=== PATIENT | female | born 1945 | race Caucasian/White ===

== ENCOUNTER 2017-12-24 21:33 | Inpatient (IN) | payer MEDICARE, OTHER ==
[2017-12-24 22:25] LABS: #Lymphocytes 0.9 thou/uL (1.20-3.40); #Monocytes 0.2 thou/uL (0.11-0.59); #Neutrophils 6.6 thou/uL (1.40-6.50); %Basophils 0.3 % (0.0-1.0); %Eosinophils 0.1 % (0.0-10.0); %Monocytes 2.1 % (0.0-10.0); %Neutrophils 85.5 % (42.0-75.0); Hemoglobin 10.6 g/dL (12.0-16.0); Mean Corpuscular HGB CONC 31.4 g/dL (32.0-36.0); Mean Corpuscular Hemoglobin 26.9 pg (27.0-31.0); Mean Corpuscular Volume 85.8 fl (81.0-99.0); Mean Platelet Volume 6.6 fL (7.4-10.4); Platelet Count 334 thou/uL (130-400); RBC Distribution Width 14.2 % (11.5-14.5); Red Blood Cell (RBC) Count 3.92 mill/uL (4.20-5.40); White Blood Cell (WBC) Count 7.8 thou/uL (4.8-10.8)
[2017-12-24 22:39] LABS: CK (CPK) 1216 U/L (29-168); Lipase 23 U/L (8-78); PTT 34.1 SEC (22.9-36.1); Prothrombin Time 13.8 SEC (12.0-14.7)
[2017-12-24 22:44] LABS: CKMB 3.6 ng/mL (0-6.6); Troponin I Less than 0.010 ng/mL (< 0.028)
[2017-12-24] MEDS ORDERED: Sodium Chloride For Inhalation 0.9% 3 ML NEB ONE (23:19)
[2017-12-24 23:35] LABS: ALT (SGPT) 27 U/L (8-55); AST (SGOT) 46 U/L (5-34); Alkaline Phosphatase 83 U/L (40-150); Anion Gap 14 mmol/L (10-20); BUN (Urea Nitrogen) 28 mg/dL (9.8-20.1); Bilirubin, Total 0.5 mg/dL (0.2-1.2); Calc. Creatinine Clearance 0 mL/min (70-130); Calcium 8.8 mg/dL (7.8-10.44); Carbon Dioxide 22 mmol/L (23-31); Chloride 102 mmol/L (98-107); Estimated GFR-MDRD 28; Globulin 2.5 g/dL (2.4-3.5); Glucose 180 mg/dL (83-110); Potassium 4.1 mmol/L (3.5-5.1); Protein, Total 6.5 g/dL (6.0-8.3); Sodium 134 mmol/L (136-145)
[2017-12-24 23:39] LABS: Base Excess-Venous -3.9 mmol/L (0 (+/- 2.5)); Bicarbonate (HCO3v) 22.4 mmol/L (1.0-85.0); CO2 Tension (PvCO2) 44.8 mmHg (41.0-51.0); Calcium, Ionized 1.11 mmol/L (1.12-1.32); Hemoglobin - Calc 12.1 g/dL (12.0-18.0); O2 Tension (PvO2) 57.8 mmHg (35.0-45.0); Potassium 3.8 mmol/L (3.4-4.7); T. Carbon Dioxide 23.8 mmol/L (1.0-85.0); pH (Venous) 7.308 (7.35-7.45); vO2 Saturation-calc 86.7 % (94-98)
[2017-12-24] MEDS ORDERED: Dexamethasone 4 mg/ml Vial ONE (23:39)
[2017-12-25] MEDS ORDERED: Dexamethasone 4 mg/ml Vial ONE ×2 (00:18→05:50)
[2017-12-25 00:47] LABS: Base Excess (BEa) -5.7 mEq/L (0 (+/-) 2.5); CO2 Tension 34.1 mmHg (35.0-45.0); Hematocrit-ABG 35.1 % (36.0-47.0); Hemoglobin (Hb) 9.9 g/dL (12.0-16.0); O2 Tension (PaO2) 120.7 mmHg (80.0-100.0); pH, Arterial 7.36 (7.35-7.45)
[2017-12-25 00:48] LABS: ALV-art Gradient 34.915 (0-20); Analyzer IN Cardio ER; Calcium, Ionized 1.2 mmol/L (1.12-1.30); Puncture Site RBA
[2017-12-25] MEDS ORDERED: Benzonatate 100 MG CAP PO PRN (02:19)
[2017-12-25] MEDS ORDERED: Dextrose 50% Abboject 50 ML SYRINGE SLOW IVP PRN (02:21)
[2017-12-25] MEDS ORDERED: Dextrose 5% in Water 1,000 ML IV PRN (02:21)
[2017-12-25 03:35] LABS: #Lymphocytes 0.5 thou/uL (1.20-3.40); #Monocytes 0.1 thou/uL (0.11-0.59); #Neutrophils 7.3 thou/uL (1.40-6.50); %Basophils 0.2 % (0.0-1.0); %Eosinophils 0.1 % (0.0-10.0); %Lymphocytes 6.8 % (21.0-51.0); %Monocytes 0.7 % (0.0-10.0); %Neutrophils 92.2 % (42.0-75.0); Hemoglobin 10.7 g/dL (12.0-16.0); Mean Corpuscular HGB CONC 31.6 g/dL (32.0-36.0); Mean Corpuscular Hemoglobin 27.1 pg (27.0-31.0); Mean Corpuscular Volume 85.8 fl (81.0-99.0); Mean Platelet Volume 6.6 fL (7.4-10.4); Platelet Count 319 thou/uL (130-400); RBC Distribution Width 14.2 % (11.5-14.5); Red Blood Cell (RBC) Count 3.94 mill/uL (4.20-5.40); White Blood Cell (WBC) Count 7.9 thou/uL (4.8-10.8)
[2017-12-25 03:50] LABS: Anion Gap 15 mmol/L (10-20); BUN (Urea Nitrogen) 28 mg/dL (9.8-20.1); Calc. Creatinine Clearance 0 mL/min (70-130); Calcium 9.1 mg/dL (7.8-10.44); Carbon Dioxide 19 mmol/L (23-31); Chloride 104 mmol/L (98-107); Estimated GFR-MDRD 29; Glucose 310 mg/dL (83-110); Potassium 4.3 mmol/L (3.5-5.1); Sodium 134 mmol/L (136-145)
--- NOTE | 2017-12-25 07:23 | RAD ---
RADIOGRAPH NECK SOFT TISSUES 2 VIEWS: Date: 12/24/17 Time: 2347 hours HISTORY: 72-year-old female with dyspnea. FINDINGS: No evidence of prevertebral soft tissue swelling or supraglottitis. There is narrowing of the upper p ortion of the trachea, with steeple sign. There are severe degenerative facet changes in the left upp er cervical spine, and at least moderate degenerative facet changes elsewhere bilaterally. There is m ultilevel degenerative disc disease, including severe, incompletely imaged. IMPRESSION: 1. Subglottic tracheal narrowing, suggestive of edema. 2. No supraglottic airway narrowing. 3. High-grade cervical spondylosis. POS: [facility]
[2017-12-25 07:31] VITALS: BMI 29.8
[2017-12-25] MEDS: Dexamethasone 4 mg/ml Vial SLOW IVP SCH ×3 (07:57→17:23)
[2017-12-25] MEDS: Heparin 5,000 UNITS/ML VIAL SC SCH ×3 (08:50→20:36)
[2017-12-25] MEDS: HYDROcodone/Acetaminophen 10/325 mg Tablet PO PRN ×3 (08:50→20:36)
[2017-12-25] MEDS: Benzonatate 100 MG CAP PO SCH ×3 (08:50→20:36)
[2017-12-25] MEDS ORDERED: Famotidine/PF 20 mg/2ml Vial SLOW IVP SCH (09:00)
[2017-12-25] MEDS: Famotidine 40 MG/4 ML VIAL SLOW IVP SCH (09:48)
[2017-12-25] MEDS ORDERED: Acetaminophen 325 MG TAB PO PRN (16:00)
[2017-12-25] MEDS ORDERED: PROVENTIL INHALER 6.7 G (200 INHALATIONS) INH PRN (16:15)
[2017-12-25] MEDS ORDERED: Dulaglutide [Trulicity] 0.75 MG SC SCH (16:15)
[2017-12-25] MEDS: Sodium Chloride 0.45% 1,000 ML IV SCH (17:16)
[2017-12-25] MEDS: traMADol HCl 50 MG TAB PO PRN (18:44)
[2017-12-25] MEDS: Diabetic Tussin 200 MG/10 ML UDCUP PO PRN (19:45)
[2017-12-25] MEDS: Amitriptyline HCl 25 MG TAB PO SCH (20:36)
[2017-12-25] MEDS: guaiFENesin/Codeine Phosphate 200 mg/20 mg 10 ml UD Cup PO PRN (20:46)
[2017-12-25] MEDS: Lidocaine 5% Patch TD PRN (21:55)
[2017-12-25] MEDS: Lidocaine Patch Removal 1 EACH TOP SCH (21:57)
--- NOTE | 2017-12-25 22:17 | CON ---
DATE OF CONSULTATION: 12/25/2017 SERVICE: Pulmonary Medicine. REASON FOR CONSULTATION: Respiratory failure. HISTORY OF PRESENT ILLNESS: The patient is a 72-year-old female with past medical history significant for essentially nothing. She had a 3-day history of febrile illness, with malaise, and symptoms of upper respiratory tract infection. She had progressive shortness of breath that came on over a short period of time. She presented to her primary care physician. She was diagnosed appropriately with a sinusitis. That being said, chest x-ray was unremarkable as well as other interventions including evaluation for flu, and Streptococcus. She presented to the Emergency Department and had stridorous breath sounds. As such, she was subsequently placed in the ICU for observation. There she ended up getting nebulized medication, and steroids. She feels much improved compared to her presentation, though she is still struggling from time to time, particularly when she develops coughing paroxysms. She looks to be in no distress when she is not having one of those paroxysms. That being said, her respirations are fairly labored. PAST MEDICAL HISTORY: 1. Morbid obesity. 2. Fibromyalgia. 3. Osteoarthritis. 4. Type 2 diabetes mellitus. 5. Dyslipidemia. 6. Hypertension. PAST SURGICAL HISTORY: 1. Appendectomy. 2. Gastric bypass surgery. 3. section. 4. Rotator cuff repair. 5. Left open reduction internal fixation of a tibial plateau fracture. FAMILY HISTORY: non-contributory. SOCIAL HISTORY: negative for alcohol, tobacco, or illicit drug use. REVIEW OF SYSTEMS: General, head, ears, eyes, nose, throat, cardiovascular, respiratory, GI, , musculoskeletal, neurologic, and skin is negative except as mentioned in the HPI. ALLERGIES: IODINE, SHELLFISH. MEDICATIONS: List of her inpatient medications were reviewed. There are no specific updates made at this time. PHYSICAL EXAMINATION: VITAL SIGNS: Afebrile, pulse 90, blood pressure 143/78, respirations 18, and saturation 93% on room air. GENERAL: The patient is awake and alert. She is in no apparent distress. She has accessory muscles during inspiration, but expiration is comfortable and she talks in full sentences. HEENT: Normocephalic, atraumatic. Sclerae are white, conjunctivae pink. Oral and nasal mucosa is moist without lesions. LUNGS: Decent air entry. There is no prolonged expiratory phase, wheezing, rhonchi or crackles. She has a very prolonged inspiratory phase. HEART: Normal rate, regular. ABDOMEN: Soft, nontender, nondistended. Bowel sounds are positive. MUSCULOSKELETAL: No cyanosis or clubbing. No pitting in the bilateral lower extremities. NEUROLOGIC: Grossly nonfocal. LABORATORY DATA: WBC 7.9, hemoglobin 10.7, platelets 319,000. INR 1.0. PH 7.36, pCO2 of 34, pO2 of 120, on 20% FIO2. Creatinine 1.71, which is roughly baseline. Basic metabolic profile is otherwise unremarkable. Blood sugars ranged from 208-256. Calcium 1.11. Liver function studies are unremarkable. BNP is normal. IMAGING: X-ray of the soft tissues in the neck demonstrate subglottic tracheal narrowing suggestive of edema. No supraglottic airway narrowing. High-grade cervical spondylosis. ASSESSMENT: 1. 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 Based on the ENT's direct observation. 2. Fibromyalgia. 3. Recent upper respiratory tract infection. PLAN: We will get respiratory virus panel. If she can lie flat to night while sleeping, we will consider getting an MRI of the head, particularly if she is not improving. If she gets worse, elective intubation, and tracheostomy will be performed. Pulmonary Critical Care will continue to follow while the patient remains in this location. I would like for her to be on room air. If she has any evidence of desaturation that is not episodic, we will need to electively intubate her. 70 minutes have been devoted to this patient in various activities. I personally reviewed all imaging studies and laboratory data noted within this document. For fifty percent of this time, I was interacting with the patient at the bedside or coordinating care with the care team. For the remainder of the time I was immediately available to the patient in the hospital unit. PANCHO
[2017-12-25] MEDS: HumaLOG 300 UNITS/3 ML VIAL SC PRN (22:21)
[2017-12-26] MEDS: Dexamethasone 4 mg/ml Vial SLOW IVP SCH ×2 (00:41→04:45)
[2017-12-26] MEDS: guaiFENesin/Codeine Phosphate 200 mg/20 mg 10 ml UD Cup PO PRN ×6 (00:41→20:23)
[2017-12-26] MEDS: Benzonatate 100 MG CAP PO PRN (00:41)
[2017-12-26] MEDS: traMADol HCl 50 MG TAB PO PRN ×3 (00:42→20:22)
[2017-12-26] MEDS: HYDROcodone/Acetaminophen 10/325 mg Tablet PO PRN ×4 (04:46→21:23)
[2017-12-26] MEDS: Levothyroxine Sodium 125 MCG TAB PO SCH (04:46)
[2017-12-26] MEDS: HumaLOG 300 UNITS/3 ML VIAL SC PRN (04:54)
[2017-12-26 05:32] LABS: #Lymphocytes 1.3 thou/uL (1.20-3.40); #Monocytes 0.5 thou/uL (0.11-0.59); #Neutrophils 6.8 thou/uL (1.40-6.50); %Basophils 0.1 % (0.0-1.0); %Eosinophils 0.2 % (0.0-10.0); %Monocytes 5.3 % (0.0-10.0); %Neutrophils 79.3 % (42.0-75.0); Hemoglobin 10.5 g/dL (12.0-16.0); Mean Corpuscular HGB CONC 32.3 g/dL (32.0-36.0); Mean Corpuscular Hemoglobin 28.3 pg (27.0-31.0); Mean Corpuscular Volume 87.5 fl (81.0-99.0); Mean Platelet Volume 7.4 fL (7.4-10.4); Platelet Count 327 thou/uL (130-400); RBC Distribution Width 14.3 % (11.5-14.5); Red Blood Cell (RBC) Count 3.71 mill/uL (4.20-5.40); White Blood Cell (WBC) Count 8.6 thou/uL (4.8-10.8)
[2017-12-26 05:40] LABS: Anion Gap 13 mmol/L (10-20); BUN (Urea Nitrogen) 33 mg/dL (9.8-20.1); Calc. Creatinine Clearance 36 mL/min (70-130); Carbon Dioxide 21 mmol/L (23-31); Chloride 108 mmol/L (98-107); Estimated GFR-MDRD 32; Glucose 182 mg/dL (83-110); Potassium 4.7 mmol/L (3.5-5.1); Sodium 137 mmol/L (136-145)
[2017-12-26] MEDS ORDERED: predniSONE 20 MG TAB PO SCH (08:00)
--- NOTE | 2017-12-26 08:24 | HP ---
PRIMARY CARE PHYSICIAN: Osiris Watkins MD HISTORY OF PRESENT ILLNESS: This is a 72-year-old female with a history of hypertension, hypothyroidism, chronic pain, restless legs, who presented with sudden onset of shortness of breath yesterday. She went to see her primary care provider, who was found to be negative and was discharged home with albuterol and doxycycline. The patient was able to take the albuterol, but somehow was not able to take the doxycycline because she did not fill it and subsequently presented to the Emergency Department for worsening shortness of breath. In the Emergency Department, she was screened for flu, which was negative. Chest x-ray is unremarkable; however, she was noted to clinically have significant amount of stridor. This was accompanied by hypoxia. The patient was given a dose of racemic EPI and started on IV steroids, which significantly helped with the patient's respiratory status. At the time of my evaluation, the patient states that her breathing is significantly better, states that she has sick contacts in the form of two small children, one 5-year- old and one preschool age toddler at home. REVIEW OF SYSTEMS: As per HPI. CONSTITUTIONAL: No significant weight changes, loss or gain over the last 2 weeks. Denies any overt fevers or chills. HEENT: No new headaches, dizziness, or lightheadedness. Denies any change in vision. CARDIOVASCULAR: Denies any chest pain, chest pressure, left side arm numbness or tingling. Denies any diaphoretic episodes with shortness of breath. RESPIRATORY: Shortness of breath not particularly with exertion, but also occurring at rest. Endorses a cough, denies any production of the cough. Denies any postnasal drip. Positive for cough. Negative for productive cough. GASTROINTESTINAL: Denies any nausea, vomiting, abdominal pain, constipation, or diarrhea. GENITOURINARY: Denies any issues with dysuria, change in urinary frequency, quality or quantity. MUSCULOSKELETAL: Generalized fatigue but otherwise no focal myalgias or arthralgias. Remainder of review of systems otherwise negative. PAST MEDICAL HISTORY: As per above, significant for type 2 diabetes, hyperlipidemia, hypertension, osteoarthritis, obesity, and fibromyalgia. PAST SURGICAL HISTORY: Status post appendectomy, status post right shoulder surgery, status post gastric bypass, status post . HOME MEDICATIONS: Please see the EMR for full details. The patient's regimen appears to include the following: Tramadol 100 mg p.o. daily, repaglinide, pantoprazole, [place]-3 Fatty Acids, multivitamins, montelukast, losartan, lidocaine patch, levothyroxine, [place], glucose, furosemide, zetimibe, colestipol , calcium carbonate, biotin, aspirin, amitriptyline, and acetaminophen. ALLERGIES: Include IODINE, SHELLFISH, and BEE VENOM. FAMILY HISTORY: The patient denies any known family history of pulmonary issues. Denies any family history of asthma. Denies any personal history of asthma as well. SOCIAL HISTORY: The patient is . Her is with her at bedside. She indicates he would be her medical decision maker if she is unable to make her own medical decisions. She endorses being FULL CODE at this point in time. There is small children, who reside with them in the home, who are potential sick contacts as mentioned above. The patient denies any active alcohol, tobacco, or illicit drug use. PHYSICAL EXAMINATION: VITAL SIGNS: Temperature of 98.7, pulse of 101, respirations 18, satting 94% on room air. GENERAL: The patient is awake, alert, seated in the ER stretcher. HEENT: Normocephalic, atraumatic. Slightly dry mucous membranes. Extraocular motions are intact. CARDIOVASCULAR: S1 and S2. No murmurs, rubs or gallops. Pulses 2+ bilateral upper extremities, no pitting pedal edema. RESPIRATORY: No wheezes, rales, or rhonchi. Reasonable air movement with deep breath. The patient starts having coughing paroxysms. ABDOMEN: Positive bowel sounds, soft, nontender to palpation. MUSCULOSKELETAL: Able to move all 4 extremities and self-reposition the stretcher without difficulty or assistance. LABORATORY DATA AND IMAGING: WBC 7.8, hemoglobin 10.6, hematocrit 33.6, platelets 334. PT 13.8, INR 1.0, D-dimer 0.41. ABG significant for pH was 7.36 , pCO2 of 34, pO2 of 120. Sodium 134, potassium 4.1, chloride 102, bicarbonate 22, BUN 28, creatinine 1.76, glucose 180, calcium 8.8, total bilirubin 0.5, AST 46, ALT 27, alkaline phosphatase 83. Creatinine kinase 1216, CK-MB 3.6, troponin less than 0.01. BNP 24.7, total protein 6.5, albumin 4.0, lipase 23. On 12/24/2017, chest x-ray. Impression atherosclerosis. No acute cardiopulmonary process. Soft tissue neck x-ray. Impression subglottic tracheal narrowing suggestive of edema. No supraglottic airway narrowing. Advanced cervical spondylosis. ASSESSMENT AND PLAN: 1. A 72-year-old female presenting with chief complaint of shortness of breath. Shortness of breath with imaging suggestive of subglottic tracheal narrowing. The patient has been given racemic EPI, will continue and closely monitor the patient's respiratory status. I appreciate pulmonary consultation for help in managing the patient's respiratory status and airway. The patient has also been continued on IV steroids as well. The patient currently appears to be satting reasonably well on nasal cannula. The patient does seem to have hypoxic episodes with coughing, likely secondary to tracheal narrowing coughing paroxysms. We will initiate an antitussive regimen including Tessalon Perles and Robitussin. Patient has been influenza negative. 2. Acute kidney injury, closely monitor, patient's urine output; suspect this is likely secondary to her acute illness. 3. Type 2 diabetes. Anticipate a medication induced hyperglycemia with the utilization of IV steroids. The patient's home medication list, exact dosings are being confirmed with her pharmacy. Once these are confirmed she may resume on her home regimen with a superimposed sliding scale insulin if needed. 4. Hypothyroidism, stable. 5. Hypertension, stable 6. Diet: Diabetic. 7. Activity: As tolerated. 8. Deep venous thrombosis prophylaxis with heparin secondary to renal dysfunction. Thank you for asking me care for the patient. Questions or concerns, contact me at [facility]. The patient is to be admitted to the [facility]. [facility]
[2017-12-26] MEDS: Benzonatate 100 MG CAP PO SCH ×3 (08:49→21:22)
[2017-12-26] MEDS: Famotidine 40 MG/4 ML VIAL SLOW IVP SCH (08:53)
[2017-12-26] MEDS ORDERED: Amoxicillin/Potassium Clav 500 MG TAB PO SCH (10:15)
--- NOTE | 2017-12-26 10:32 | PDOC.PN ---
- Subjective Encounter Start Date: 12/26/17 Encounter Start Time: 10:31 cc: dyspnea sub: Pt says she feels better, still c/o some dyspnea - Objective Resuscitation Status: Resuscitation Status FULL:Full Resuscitation Vital Signs & Weight: Vital Signs (12 hours) Temp Pulse Resp Pulse Ox 12/26/17 08:00 97.7 F 77 18 93 L 12/26/17 03:00 98 F 12/25/17 23:00 98.2 F Weight Weight 157 lb 13.616 oz Most Recent Monitor Data Heart Rate from ECG 87 NIBP 112/45 NIBP BP-Mean 65 Respiration from ECG 12 SpO2 95 I&O: 12/25/17 12/26/17 12/27/17 06:59 06:59 06:59 Intake Total 695 Output Total 975 0 Balance -280 0 Result Diagrams: 12/26/17 10:47 12/26/17 10:47 Additional Labs: Accuchecks 12/26/17 12/25/17 12/25/17 04:54 22:17 16:28 POC Glucose 175 H 209 H 208 H Phys Exam - Physical Examination Constitutional: NAD HEENT: moist MMs Neck: no JVD Respiratory: no wheezing, no rales, no rhonchi occasional wheezing Cardiovascular: RRR, no significant murmur, no rub no gallop Gastrointestinal: soft, non-tender no guarding, no rebound tenderness Neurological: non-focal follows commands Psychiatric: normal affect Skin: no rash Dx/Plan - Plan Pt is 72 yrs old female now admitted to hospital with diagnosis of dyspnea 1. Dyspnea + Laryngeal weakness 2. SOLO 3. DM type 2 4. H/O HTN Plan: Pulmonary on board. Monitor respiratory status closely Creatinine worsening. Will dc losartan Continue miv fluids. Check BMP in am Monitor bp closely. will titrate bp meds as tolerated SCD & PPI for prophylaxis Currently on room air. Will transfer pt to tele case d/w pt & RN
[2017-12-26] MEDS: Ezetimibe 10 MG TAB PO SCH (10:33)
[2017-12-26] MEDS: Heparin 5,000 UNITS/ML VIAL SC SCH ×3 (10:33→21:26)
[2017-12-26 10:58] LABS: #Lymphocytes 1.6 thou/uL (1.20-3.40); #Monocytes 0.5 thou/uL (0.11-0.59); #Neutrophils 7.8 thou/uL (1.40-6.50); %Basophils 0.2 % (0.0-1.0); %Lymphocytes 16.1 % (21.0-51.0); %Monocytes 4.7 % (0.0-10.0); %Neutrophils 78.9 % (42.0-75.0); Hemoglobin 11.3 g/dL (12.0-16.0); Mean Corpuscular Hemoglobin 26.8 pg (27.0-31.0); Mean Corpuscular Volume 86.5 fl (81.0-99.0); Mean Platelet Volume 6.8 fL (7.4-10.4); Platelet Count 374 thou/uL (130-400); RBC Distribution Width 14.4 % (11.5-14.5); Red Blood Cell (RBC) Count 4.21 mill/uL (4.20-5.40); White Blood Cell (WBC) Count 9.8 thou/uL (4.8-10.8)
[2017-12-26 11:30] LABS: Anion Gap 18 mmol/L (10-20); BUN (Urea Nitrogen) 36 mg/dL (9.8-20.1); Calc. Creatinine Clearance 33 mL/min (70-130); Calcium 9.1 mg/dL (7.8-10.44); Carbon Dioxide 18 mmol/L (23-31); Chloride 106 mmol/L (98-107); Estimated GFR-MDRD 29; Glucose 171 mg/dL (83-110); Potassium 3.9 mmol/L (3.5-5.1); Sodium 138 mmol/L (136-145)
[2017-12-26] MEDS: Sodium Chloride 0.45% 1,000 ML IV SCH (12:29)
[2017-12-26] MEDS ORDERED: Losartan 25 MG TAB PO SCH (21:00)
--- NOTE | 2017-12-26 21:20 | PRG ---
DATE OF SERVICE: 12/26/2017 SERVICE: Pulmonary Medicine. INTERVAL HISTORY: The patient is doing fine from a respiratory standpoint. She is breathing comfortably today. Her vocal cord issue seems to be improving slightly. She is moving more air. Yesterday, we discovered parainfluenza virus. I am not certain whether or not this can create her vocal cord dysfunction, but I am going to look that up. I am just happy to see that she is feeling much improved today. Her voice seems to be a touch stronger, she is not having those coughing paroxysms as she previously was. PHYSICAL EXAMINATION: VITAL SIGNS: Afebrile, pulse 88, blood pressure 107/51, respirations 16, saturation 98% on room air. GENERAL: The patient is awake and alert, in no apparent distress. LUNGS: Decent air entry. There is much less stridor today. There is less prolonged inspiratory phase, although it is still present. HEART: Normal rate, regular. ABDOMEN: Soft, nontender, nondistended. Bowel sounds are positive. MUSCULOSKELETAL: No cyanosis or clubbing. No pitting in the bilateral lower extremities. NEUROLOGIC: Grossly nonfocal. LABORATORY DATA: WBC 9.8, hemoglobin 11.3, platelets 374,000. Creatinine 1.73 , BUN 36. Basic metabolic profile is otherwise unremarkable. Bicarbonate is slowly dropping to 18 and anion gap is increased slightly to 18. Respiratory virus panel was positive for parainfluenza virus 3. ASSESSMENT: 1. 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 2. Upper respiratory tract infection, secondary to parainfluenza virus. 3. Fibromyalgia. PLAN: The patient is doing fairly well. As such, we will deescalate her to the [facility]. She will be offered clear diet. Pulmonary Critical Care will continue to follow along. If she continues to make good progress, no additional studies will be performed. If she gets worse, elective intubation possible tracheostomy will need to be considered. I will look to whether or not parainfluenza virus 3 could create bilateral vocal cord paralysis and whether or not this is expected to be temporary or permanent. PANCHO
[2017-12-26] MEDS: Amitriptyline HCl 25 MG TAB PO SCH (21:22)
[2017-12-26] MEDS: Amoxicillin/Potassium Clav 500 MG TAB PO SCH (21:22)
[2017-12-26] MEDS: Lidocaine 5% Patch TD PRN (21:27)
[2017-12-26] MEDS: Lidocaine Patch Removal 1 EACH TOP SCH (22:35)
[2017-12-27] MEDS: guaiFENesin/Codeine Phosphate 200 mg/20 mg 10 ml UD Cup PO PRN ×4 (02:56→21:42)
[2017-12-27] MEDS: Benzonatate 100 MG CAP PO PRN (05:21)
[2017-12-27] MEDS: Levothyroxine Sodium 125 MCG TAB PO SCH (05:22)
[2017-12-27 05:24] LABS: #Lymphocytes 2.2 thou/uL (1.20-3.40); #Monocytes 1.1 thou/uL (0.11-0.59); #Neutrophils 5.6 thou/uL (1.40-6.50); %Basophils 0.1 % (0.0-1.0); %Eosinophils 0.3 % (0.0-10.0); %Lymphocytes 24.9 % (21.0-51.0); %Monocytes 12.3 % (0.0-10.0); %Neutrophils 62.4 % (42.0-75.0); Mean Corpuscular Hemoglobin 27.4 pg (27.0-31.0); Mean Corpuscular Volume 85.6 fl (81.0-99.0); Platelet Count 299 thou/uL (130-400); RBC Distribution Width 14.1 % (11.5-14.5); Red Blood Cell (RBC) Count 3.64 mill/uL (4.20-5.40); White Blood Cell (WBC) Count 8.9 thou/uL (4.8-10.8)
[2017-12-27 05:35] LABS: Anion Gap 14 mmol/L (10-20); BUN (Urea Nitrogen) 38 mg/dL (9.8-20.1); Calc. Creatinine Clearance 34 mL/min (70-130); Calcium 8.5 mg/dL (7.8-10.44); Carbon Dioxide 18 mmol/L (23-31); Chloride 109 mmol/L (98-107); Estimated GFR-MDRD 29; Glucose 169 mg/dL (83-110); Sodium 137 mmol/L (136-145)
[2017-12-27] MEDS: Amoxicillin/Potassium Clav 500 MG TAB PO SCH ×2 (07:42→20:18)
[2017-12-27] MEDS: Ezetimibe 10 MG TAB PO SCH (07:42)
[2017-12-27] MEDS: Benzonatate 100 MG CAP PO SCH ×3 (07:42→20:17)
[2017-12-27] MEDS: HYDROcodone/Acetaminophen 10/325 mg Tablet PO PRN ×3 (07:42→20:14)
[2017-12-27] MEDS: Famotidine 20 MG TAB PO SCH (07:43)
[2017-12-27] MEDS: Heparin 5,000 UNITS/ML VIAL SC SCH ×3 (07:43→20:18)
[2017-12-27] MEDS: Loperamide HCl 2 MG CAP PO PRN ×2 (11:15→15:50)
[2017-12-27] MEDS: Sodium Chloride 0.45% 1,000 ML IV SCH (11:15)
--- NOTE | 2017-12-27 13:03 | PRG ---
DATE OF SERVICE: 12/27/2017 SERVICE: Pulmonary Medicine. INTERVAL HISTORY: The patient is doing fine. Her breathing is much more comfortable today. She did not even have a prolonged inspiratory phase any longer. She still has a hoarse voice and she has so me vocal cord weakness. That being said, she is clearly moving in the right direction and has absolu tely no hint of respiratory issues at this point. She is having a hard time coughing fully, but outs trixie of this, she is doing very well. PHYSICAL EXAMINATION: VITAL SIGNS: Afebrile, pulse 80, blood pressure 192/48, respirations 22 and saturation 97% on room a ir. GENERAL: The patient is awake and alert. She is in no apparent distress. LUNGS: Excellent air entry today. There is no prolonged inspiratory or expiratory phase. Minimal r honchi are present. She has a hard time clearing with cough. HEART: Normal rate and regular. ABDOMEN: Soft, nontender and nondistended. Bowel sounds are positive. MUSCULOSKELETAL: No cyanosis or clubbing. There is trace pitting in the bilateral lower extremities . NEUROLOGIC: Grossly nonfocal. LABORATORY DATA: WBC 8.9, hemoglobin 10.0 and platelets 299,000. Creatinine 1.71 and roughly stable , BUN 36. Bicarbonate 18. Basic metabolic profile is otherwise unremarkable. Respiratory virus saldana el is growing parainfluenza virus 3. ASSESSMENT: 1. 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 2. Upper respiratory tract infection, secondary to parainfluenza virus. 3. Fibromyalgia. 4. Chronic kidney disease, stage 3. DISCUSSION AND PLAN: The patient is really recovering beautifully. I would like for her to be obser mckenna in the hospital for 1 additional day to make certain that her voice strengthens up a touch. Elier rowland will continue to follow while the patient remains in this location. My suspicion is that she h ad an acute inflammatory process associated with a virus. The involvement of the vocal cords has imp roved dramatically over the past 3 days. As such, no additional interventions or diagnostic studies will be entertained presently. I will continue to follow while she remains in house. I did not spec ifically find any evidence to suggest that parainfluenza virus can cause vocal cord issues. We do no t see any bulbar features consistent with neuromuscular disease presently. We will continue to watch for that as time goes on.
--- NOTE | 2017-12-27 17:45 | PDOC.PN ---
- Subjective Encounter Start Date: 12/27/17 Encounter Start Time: 17:44 - Objective Resuscitation Status: Resuscitation Status FULL:Full Resuscitation Vital Signs & Weight: Vital Signs (12 hours) Temp Pulse Pulse Resp BP BP Pulse Ox 12/27/17 15:41 97.2 F L 104 H 24 H 113/52 L 99 12/27/17 14:59 86 123/53 L 12/27/17 11:00 96.8 F L 80 22 H 92/48 L 97 12/27/17 08:00 96.8 F L 81 22 H 98 12/27/17 07:00 96.8 F L 81 22 H 105/49 L 96 Pulse Ox 12/27/17 15:41 12/27/17 14:59 92 L 12/27/17 11:00 12/27/17 08:00 12/27/17 07:00 Weight Weight 157 lb 13.616 oz Most Recent Monitor Data Heart Rate from ECG 76 NIBP 99/54 NIBP BP-Mean 74 Respiration from ECG 16 SpO2 91 I&O: 12/26/17 12/27/17 12/28/17 06:59 06:59 06:59 Intake Total 695 1451 Output Total 975 450 Balance -280 1001 Result Diagrams: 12/27/17 04:54 12/27/17 04:54 Additional Labs: Accuchecks 12/27/17 12/27/17 12/27/17 16:33 10:26 05:30 POC Glucose 155 H 111 H 155 H 12/26/17 22:26 POC Glucose 146 H Dx/Plan - Plan Phys Exam - Physical Examination Constitutional: NAD HEENT: moist MMs Neck: no JVD Respiratory: no wheezing, no rales, no rhonchi occasional wheezing Cardiovascular: RRR, no significant murmur, no rub no gallop Gastrointestinal: soft, non-tender no guarding, no rebound tenderness Neurological: non-focal follows commands Psychiatric: normal affect Skin: no rash Dx/Plan - Plan Pt is 72 yrs old female now admitted to hospital with diagnosis of dyspnea 1. Dyspnea + Laryngeal weakness + Acute on chronic hypoxic hypercapneic respiratory failure 2. SOLO 3. DM type 2 4. H/O HTN 5. Chronic diatsolic CHF Plan: Pulmonary on board. Monitor respiratory status closely Creatinine appears plateaued. monitor for now repeat bmp in am Monitor bp closely. will titrate bp meds as tolerated SCD & PPI for prophylaxis Currently on room air. case d/w pt & RN
[2017-12-27] MEDS: Amitriptyline HCl 25 MG TAB PO SCH (20:18)
[2017-12-27] MEDS: Lidocaine Patch Removal 1 EACH TOP SCH (22:25)
[2017-12-28] MEDS: HYDROcodone/Acetaminophen 10/325 mg Tablet PO PRN ×4 (01:56→20:40)
[2017-12-28] MEDS: guaiFENesin/Codeine Phosphate 200 mg/20 mg 10 ml UD Cup PO PRN ×4 (01:56→17:55)
[2017-12-28] MEDS: Sodium Chloride 0.45% 1,000 ML IV SCH (06:29)
[2017-12-28] MEDS: Levothyroxine Sodium 125 MCG TAB PO SCH (06:29)
[2017-12-28] MEDS: Ezetimibe 10 MG TAB PO SCH (07:56)
[2017-12-28] MEDS: Benzonatate 100 MG CAP PO SCH ×3 (07:56→20:41)
[2017-12-28] MEDS: Amoxicillin/Potassium Clav 500 MG TAB PO SCH ×2 (07:56→20:53)
[2017-12-28] MEDS: Famotidine 20 MG TAB PO SCH (07:57)
[2017-12-28] MEDS: Heparin 5,000 UNITS/ML VIAL SC SCH ×3 (07:58→20:41)
--- NOTE | 2017-12-28 13:49 | PDOC.PN ---
- Subjective Encounter Start Date: 12/28/17 Encounter Start Time: 12:00 Subjective: talks in husky voice, says its gotten worse from sunday -: no sob or trouble eating - Objective Resuscitation Status: Resuscitation Status FULL:Full Resuscitation MAR Reviewed: Yes Vital Signs & Weight: Vital Signs (12 hours) Temp Pulse Resp BP Pulse Ox 12/28/17 12:00 98.3 F 101 H 24 H 137/62 96 12/28/17 08:00 98.2 F 98 26 H 100 12/28/17 07:00 98.2 F 98 26 H 106/65 100 Weight Weight 157 lb 13.616 oz Most Recent Monitor Data Heart Rate from ECG 76 NIBP 99/54 NIBP BP-Mean 74 Respiration from ECG 16 SpO2 91 I&O: 12/27/17 12/28/17 12/29/17 06:59 06:59 06:59 Intake Total 1451 1930 Output Total 450 Balance 1001 1930 Result Diagrams: 12/27/17 04:54 12/27/17 04:54 Additional Labs: Accuchecks 12/28/17 12/28/17 12/27/17 11:00 06:03 20:59 POC Glucose 147 H 144 H 191 H 12/27/17 16:33 POC Glucose 155 H Phys Exam - Physical Examination HEENT: PERRLA, moist MMs Neck: no JVD, supple Respiratory: no wheezing, no rales Cardiovascular: RRR, no significant murmur Gastrointestinal: soft, non-tender, positive bowel sounds Musculoskeletal: pulses present, edema present Neurological: non-focal, moves all 4 limbs Psychiatric: normal affect, A&O x 3 Dx/Plan (1) Acute laryngitis Code(s): J04.0 - ACUTE LARYNGITIS Status: Acute (2) Acute exacerbation of CHF (congestive heart failure) Code(s): I50.9 - HEART FAILURE, UNSPECIFIED Status: Acute Qualifiers: Heart failure type: diastolic Qualified Code(s): I50.33 - Acute on chronic diastolic (congestive) heart failure (3) Chronic anemia Code(s): D64.9 - ANEMIA, UNSPECIFIED Status: Chronic (4) SOLO (acute kidney injury) Code(s): N17.9 - ACUTE KIDNEY FAILURE, UNSPECIFIED Status: Acute (5) CKD (chronic kidney disease) stage 3, GFR 30-59 ml/min Code(s): N18.3 - CHRONIC KIDNEY DISEASE, STAGE 3 (MODERATE) Status: Chronic (6) Physical deconditioning Code(s): R53.81 - OTHER MALAISE Status: Chronic (7) Osteoarthritis Code(s): M19.90 - UNSPECIFIED OSTEOARTHRITIS, UNSPECIFIED SITE Status: Chronic Qualifiers: Osteoarthritis location: multiple joints Osteoarthritis type: primary Qualified Code(s): M15.0 - Primary generalized (osteo)arthritis - Plan is on augmentin, nebs prn -: iv fluids for solo -: has chronic deconditioning and amb with cane minimally in house -: suggest oral steroids for severe laryngitis, she is awaiting ent opinion? -: dc plan per specialist advice * . Review of Systems - Medications/Allergies Allergies/Adverse Reactions: Allergies Allergy/AdvReac Type Severity Reaction Status Date / Time iodine Allergy Verified 04/03/15 00:03 shellfish derived Allergy Verified 04/03/15 00:03 venom-honey bee Allergy Verified 04/03/15 05:05 [bee venom (honey bee)] Medications: Current Medications Acetaminophen (Tylenol) 650 mg PO BID PRN PRN Reason: Mild Pain (1-3) Hydrocodone Bitart/Acetaminophen ([place] 10/325) 1 tab PO Q6H PRN PRN Reason: Severe Pain (7-10) Last Admin: 12/28/17 13:41 Dose: 1 tab Albuterol Sulfate (Proventil Hfa) 1 puff INH Q4H PRN PRN Reason: Cough Amitriptyline HCl (Elavil) 50 mg PO [facility] Last Admin: 12/27/17 20:18 Dose: 50 mg Amoxicillin/Clavulanate Potassium (Augmentin) 500 mg PO BID [facility] Stop: 01/04/18 21:01 Last Admin: 12/28/17 07:56 Dose: 500 mg Benzonatate (Tessalon) 100 mg PO Q4H PRN PRN Reason: Cough Benzonatate (Tessalon) 100 mg PO TID [facility] Last Admin: 12/28/17 07:56 Dose: 100 mg Benzonatate (Tessalon) 200 mg PO TID PRN PRN Reason: Cough Last Admin: 12/27/17 05:21 Dose: 200 mg Cholecalciferol (Vitamin D3) 5,000 units PO DAILY [facility] Last Admin: 12/28/17 07:56 Dose: 5,000 units Dextrose/Water (Dextrose 50%) 25 gm SLOW IVP PRN PRN PRN Reason: Hypoglycemia Ezetimibe (Zetia) 10 mg PO DAILY [facility] Last Admin: 12/28/17 07:56 Dose: 10 mg Famotidine (Pepcid) 20 mg PO 0900 [facility] Last Admin: 12/28/17 07:57 Dose: 20 mg Glucagon (Glucagon) 1 mg IM PRN PRN PRN Reason: Hypoglycemia Guaifenesin (Robitussin Sf) 100 mg PO Q4H PRN PRN Reason: Cough Last Admin: 12/25/17 19:45 Dose: 100 mg Guaifenesin/Codeine Phosphate (Robitussin Ac) 10 ml PO Q4H PRN PRN Reason: Cough Last Admin: 12/28/17 13:41 Dose: 10 ml Heparin Sodium (Porcine) (Heparin) 5,000 units SC TID [facility] Last Admin: 12/28/17 13:42 Dose: 5,000 units Dextrose/Water (D5w) 1,000 mls @ 0 mls/hr IV .Q0M PRN; As Directed PRN Reason: Hypoglycemia Sodium Chloride (1/2 Normal Saline) 1,000 mls @ 50 mls/hr IV .Q20H [facility] Last Admin: 12/28/17 06:29 Dose: 1,000 mls Insulin Human Lispro (Humalog) 0 units SC .MODERATE SLIDING SC PRN PRN Reason: Moderate Correctional Scale Last Admin: 12/26/17 04:54 Dose: 2 unit Levothyroxine Sodium (Synthroid) 125 mcg PO 0600 [facility] Last Admin: 12/28/17 06:29 Dose: 125 mcg Lidocaine (Lidoderm 5% Patch) 1 patch TD DAILY PRN PRN Reason: Pain Last Admin: 12/26/17 21:27 Dose: 1 patch Loperamide HCl (Imodium) 2 mg PO PRN PRN PRN Reason: Diarrhea/Loose Stools Last Admin: 12/27/17 15:50 Dose: 2 mg Miscellaneous Medication (Lidocaine Patch Removal) 1 each TOP 2100 [facility] Last Admin: 12/27/17 22:25 Dose: Not Given Repaglinide (Prandin) 0.5 mg PO AC [facility] Last Admin: 12/28/17 12:17 Dose: Not Given Tramadol HCl (Ultram) 50 mg PO Q6H PRN PRN Reason: Moderate Pain (4-6) Last Admin: 12/26/17 20:22 Dose: 50 mg
--- NOTE | 2017-12-28 15:33 | PRG ---
DATE OF SERVICE: 12/28/2017 SERVICE: Pulmonary Medicine. INTERVAL HISTORY: The patient is doing great from a cardiovascular and respiratory standpoint. She is moving much better air in. She still gets into coughing fits, which make her struggle for a brief period of time. That being said, there are few and far between, and also much more short lived. Jayy hannah is asking to go home today. That being said, I am really not quite comfortable with that until she has more clearly improved inspiratory effort and is more capable with phonation. PHYSICAL EXAMINATION: HEENT: Normocephalic, atraumatic. Sclerae are white, conjunctivae pink. Oral and nasal mucosa is m oist without lesions. LUNGS: Decent air entry. There are some rhonchi present which now cleared with cough. HEART: Normal rate, regular. ABDOMEN: Soft, nontender, and nondistended. Bowel sounds are positive. MUSCULOSKELETAL: No cyanosis or clubbing. There is 1+ pitting in the bilateral lower extremities. NEUROLOGIC: Grossly nonfocal. LABORATORY DATA: WBC 8.9, hemoglobin 10.0, platelets 299,000. Blood sugar ranges from 144-191. ASSESSMENT: 1. Bilateral vocal cord paralysis, possibly secondary to parainfluenza virus. 2. Upper respiratory tract infection, resolving. 3. Chronic kidney disease, stage 3. 4. Fibromyalgia. DISCUSSION AND PLAN: I am really not comfortable with the patient leaving the hospital until she anyi hannah comfortably can inspire and also she has stronger phonation. Once this occurs, she will be prepare d for transition home. If she does not or develops any bulbar type features, should prompt an MRI of the head and Neurology consultation. Pulmonary will continue to follow along for the time being, bu t from my perspective, she is stable for transition to the medical unit.
--- NOTE | 2017-12-28 16:51 | MRI ---
EXAM: BRAIN MRI WITHOUT CONTRAST 12/28/17 HISTORY: Bilateral focal cord paralysis. Evaluate for CVA. Difficult swallowing. COMPARISON: None. TECHNIQUE: Brain MRI is performed without intravenous gadolinium administration. Multisequential, multiplanar im aging is performed. FINDINGS: No hemorrhage on the axial gradient echo sequence. The calvarium has a normal marrow signal intensity. Midline brain parenchymal structures are unremark able. Central arterial flow voids are maintained. Absent restricted diffusion. Minimal T2 and FLAIR w carol matter hyperintensities. Adequate aeration of the mastoid air cells. There is bilateral paranasal sinus mucosal disease. IMPRESSION: Absent restricted diffusion. No acute infarct. POS: [facility]
--- NOTE | 2017-12-28 17:07 | MRI ---
MR OF THE CERVICAL SPINE WITHOUT CONTRAST: 12/28/17 INDICATION: Sore throat, difficulty swallowing and coughing and raspy voice for one week. COMPARISON: MR cervical spine dated 06/17/14. FINDINGS: The visualized aspects of the posterior fossa appear within normal limits. There is mild mucosal thic kening within the sphenoid sinus. At C2-C3, there is mild left neural foraminal narrowing due to uncovertebral hypertrophy and facet anil int degenerative change. At C3-C4, there is severe facet joint degenerative change and mild anterior translation of C3 and C4 which is new from 2014. There is moderate bilateral neural foraminal narrowing and moderate central c anal narrowing. At C4-C5, there is uncovertebral hypertrophy and facet joint degenerative change inducing mild bilate ral neural foraminal narrowing. At C5-C6, there is a disc osteophyte complex inducing moderate central canal narrowing. There is unco vertebral hypertrophy and facet joint degenerative change greater on the left inducing moderate left neural foraminal narrowing. At C6-C7, there is a disc osteophyte complex with facet joint degenerative change inducing mild centr al canal narrowing without appreciable neural foraminal narrowing. At C7-T1, there is no appreciable central canal or neural foraminal narrowing. IMPRESSION: 1. Multilevel spondylosis of the cervical spine with central canal and neural foraminal narrowin g as detailed above. 2. Mild paranasal sinus disease. POS: [facility]
[2017-12-28] MEDS: Amitriptyline HCl 25 MG TAB PO SCH (20:41)
[2017-12-28] MEDS: Lidocaine Patch Removal 1 EACH TOP SCH (20:45)
[2017-12-29] MEDS: Levothyroxine Sodium 125 MCG TAB PO SCH (05:33)
[2017-12-29] MEDS: Famotidine 20 MG TAB PO SCH (09:01)
[2017-12-29] MEDS: Heparin 5,000 UNITS/ML VIAL SC SCH ×3 (09:02→20:48)
[2017-12-29] MEDS: Benzonatate 100 MG CAP PO SCH ×3 (09:02→20:50)
[2017-12-29] MEDS: Ezetimibe 10 MG TAB PO SCH (09:02)
[2017-12-29] MEDS: Amoxicillin/Potassium Clav 500 MG TAB PO SCH ×2 (09:02→20:51)
[2017-12-29] MEDS: traMADol HCl 50 MG TAB PO PRN (09:03)
--- NOTE | 2017-12-29 10:12 | CON ---
DATE OF CONSULTATION: 12/29/2017 CONSULTING PHYSICIAN: Hospitalist Service. IMPRESSION: Vocal cord paralysis and shortness of breath suggesting the possibility of myasthenia gr isaac. PLAN: 1. Mestinon 60 mg q.6 hours. 2. Acetylcholine receptor antibody. HISTORY OF PRESENT ILLNESS: Ms. Kim is a 72-year-old female who reports developing acute voic e changes and some shortness of breath with coughing over the last few days. She was initially treat ed with antibiotics and breathing treatments. She is not significantly improved. She was given some IV steroids, which seemed to improve her situation. She has not noticed any double vision, trouble chewing, lateralized weakness or numbness. She does report some weakness in her legs over the recent past where her legs and knees want to give way on her. She had a chest x-ray which was unremarkable . She was admitted for further evaluation. She was seen by ENT and noted to have bilateral vocal co rd paralysis. She had an MRI of the brain and cervical spine, which only showed some degenerative di sk changes and nothing else of significance. PAST MEDICAL HISTORY: Diabetes, hyperlipidemia, hypertension, osteoarthritis, obesity, fibromyalgia. SOCIAL HISTORY: No tobacco or alcohol use. FAMILY HISTORY: Noncontributory. ALLERGIES: IODINE. REVIEW OF SYSTEMS: Otherwise negative. PHYSICAL EXAMINATION: GENERAL: She is a well-nourished elderly lady, lying in bed, in no distress. VITAL SIGNS: Blood pressure 120/72, pulse 95, respirations 24, temperature 99.2. HEENT: Pupils equal and reactive. Conjunctivae clear. Oropharynx clear. Cranium normocephalic and atraumatic. NECK: Supple. EXTREMITIES: No cyanosis, clubbing or edema. NEUROLOGIC: She was alert and cooperative. Her speech is fluent but very breathy. Cranial nerve ex am did not show any lateralized weakness, but her palate seen to not elevate appropriately. Motor ex am showed 4/5 strength in both upper and lower extremities, both proximally and distally. Sensation was intact to light touch. No tremor or dysmetrias present. Gait was not tested. Sensation was int act. LABORATORY STUDIES: White blood cell count 8.9, hemoglobin 20. Coags were normal. Chemistry panel showed mildly elevated glucoses in the high 100s. SUMMARY: A 72-year-old woman with vocal cord paralysis, some shortness of breath and what appears to be some generalized weakness, possible this could be neuromuscular in etiology and see if she respon ds to Mestinon and given antibody level.
[2017-12-29] MEDS: HYDROcodone/Acetaminophen 10/325 mg Tablet PO PRN (12:28)
[2017-12-29] MEDS: Pyridostigmine Bromide IR 60 MG TAB PO SCH ×3 (12:33→21:47)
--- NOTE | 2017-12-29 13:11 | PRG ---
DATE OF SERVICE: 12/29/2017 SUBJECTIVE: The patient appears to be doing reasonably well. OBJECTIVE: VITAL SIGNS: Temperature 99.2, pulse 79, respirations 24, O2 sat 95%, blood pressure 120/72. HEENT: Unremarkable. She does have a raspy voice. NECK: No JVD. LUNGS: Clear. CARDIAC: S1 and S2 regular. ABDOMEN: Soft. EXTREMITIES: No edema. ASSESSMENT: Bilateral vocal cord paralysis. PLAN: She is being seen and evaluated by Neurology, specifically to rule out the possibility of myas thenia gravis. Her pulmonary situation is stable and she does not appear to be in any impending fraga er respiratory compromise. It does appear that she is slowly improving.
--- NOTE | 2017-12-29 14:53 | PDOC.PN ---
- Subjective Encounter Start Date: 12/29/17 Encounter Start Time: 13:00 Subjective: speech is better this morning -: no trouble breathing - Objective Resuscitation Status: Resuscitation Status FULL:Full Resuscitation MAR Reviewed: Yes Vital Signs & Weight: Vital Signs (12 hours) Temp Pulse Resp BP BP Pulse Ox 12/29/17 11:37 98.8 F 76 16 107/58 L 95 12/29/17 08:00 99.2 F 99 24 H 12/29/17 07:45 99.2 F 99 24 H 120/72 95 12/29/17 04:00 98.4 F 77 16 120/77 95 Weight Weight 157 lb 13.616 oz Most Recent Monitor Data Heart Rate from ECG 76 NIBP 99/54 NIBP BP-Mean 74 Respiration from ECG 16 SpO2 91 I&O: 12/28/17 12/29/17 12/30/17 06:59 06:59 06:59 Intake Total 1929 1650 Balance 1929 1650 Result Diagrams: 12/27/17 04:54 12/27/17 04:54 Additional Labs: Accuchecks 12/29/17 12/29/17 12/28/17 11:50 05:20 20:19 POC Glucose 118 H 127 H 192 H 12/28/17 17:00 POC Glucose 126 H Phys Exam - Physical Examination HEENT: PERRLA, moist MMs Neck: no JVD, supple Respiratory: no wheezing, no rales Cardiovascular: RRR, no significant murmur Gastrointestinal: soft, non-tender, positive bowel sounds Musculoskeletal: no edema, pulses present Neurological: non-focal, moves all 4 limbs Psychiatric: normal affect, A&O x 3 Dx/Plan (1) Bilateral vocal cord paralysis Code(s): J38.02 - PARALYSIS OF VOCAL CORDS AND LARYNX, BILATERAL Status: Acute (2) Acute exacerbation of CHF (congestive heart failure) Code(s): I50.9 - HEART FAILURE, UNSPECIFIED Status: Acute Qualifiers: Heart failure type: diastolic Qualified Code(s): I50.33 - Acute on chronic diastolic (congestive) heart failure (3) Chronic anemia Code(s): D64.9 - ANEMIA, UNSPECIFIED Status: Chronic (4) SOLO (acute kidney injury) Code(s): N17.9 - ACUTE KIDNEY FAILURE, UNSPECIFIED Status: Resolved (5) CKD (chronic kidney disease) stage 3, GFR 30-59 ml/min Code(s): N18.3 - CHRONIC KIDNEY DISEASE, STAGE 3 (MODERATE) Status: Chronic (6) Physical deconditioning Code(s): R53.81 - OTHER MALAISE Status: Chronic (7) Osteoarthritis Code(s): M19.90 - UNSPECIFIED OSTEOARTHRITIS, UNSPECIFIED SITE Status: Chronic Qualifiers: Osteoarthritis location: multiple joints Osteoarthritis type: primary Qualified Code(s): M15.0 - Primary generalized (osteo)arthritis - Plan trial of mestinon to r/o myasthenia per neurology advice -: is on augmenitn, alb inhaler, synthroid, elavil and prandin -: MRI brain and c.spine were -ve -: to amb as tolerated -: has severe osteoarthritis of hips per patient * . Review of Systems - Medications/Allergies Allergies/Adverse Reactions: Allergies Allergy/AdvReac Type Severity Reaction Status Date / Time iodine Allergy Verified 04/03/15 00:03 shellfish derived Allergy Verified 04/03/15 00:03 venom-honey bee Allergy Verified 04/03/15 05:05 [bee venom (honey bee)] Medications: Current Medications Acetaminophen (Tylenol) 650 mg PO BID PRN PRN Reason: Mild Pain (1-3) Hydrocodone Bitart/Acetaminophen ([place] 10/325) 1 tab PO Q6H PRN PRN Reason: Severe Pain (7-10) Last Admin: 12/29/17 12:28 Dose: 1 tab Albuterol Sulfate (Proventil Hfa) 1 puff INH Q4H PRN PRN Reason: Cough Amitriptyline HCl (Elavil) 50 mg PO HS [facility] Last Admin: 12/28/17 20:41 Dose: 50 mg Amoxicillin/Clavulanate Potassium (Augmentin) 500 mg PO BID [facility] Stop: 01/04/18 21:01 Last Admin: 12/29/17 09:02 Dose: 500 mg Benzonatate (Tessalon) 100 mg PO Q4H PRN PRN Reason: Cough Benzonatate (Tessalon) 100 mg PO TID [facility] Last Admin: 12/29/17 09:02 Dose: 100 mg Benzonatate (Tessalon) 200 mg PO TID PRN PRN Reason: Cough Last Admin: 12/27/17 05:21 Dose: 200 mg Cholecalciferol (Vitamin D3) 5,000 units PO DAILY [facility] Last Admin: 12/29/17 09:02 Dose: 5,000 units Dextrose/Water (Dextrose 50%) 25 gm SLOW IVP PRN PRN PRN Reason: Hypoglycemia Ezetimibe (Zetia) 10 mg PO DAILY [facility] Last Admin: 12/29/17 09:02 Dose: 10 mg Famotidine (Pepcid) 20 mg PO 0900 [facility] Last Admin: 12/29/17 09:01 Dose: 20 mg Glucagon (Glucagon) 1 mg IM PRN PRN PRN Reason: Hypoglycemia Guaifenesin (Robitussin Sf) 100 mg PO Q4H PRN PRN Reason: Cough Last Admin: 12/25/17 19:45 Dose: 100 mg Guaifenesin/Codeine Phosphate (Robitussin Ac) 10 ml PO Q4H PRN PRN Reason: Cough Last Admin: 12/28/17 17:55 Dose: 10 ml Heparin Sodium (Porcine) (Heparin) 5,000 units SC TID [facility] Last Admin: 12/29/17 09:02 Dose: 5,000 units Dextrose/Water (D5w) 1,000 mls @ 0 mls/hr IV .Q0M PRN; As Directed PRN Reason: Hypoglycemia Insulin Human Lispro (Humalog) 0 units SC .MODERATE SLIDING SC PRN PRN Reason: Moderate Correctional Scale Last Admin: 12/26/17 04:54 Dose: 2 unit Levothyroxine Sodium (Synthroid) 125 mcg PO 0600 [facility] Last Admin: 12/29/17 05:33 Dose: 125 mcg Lidocaine (Lidoderm 5% Patch) 1 patch TD DAILY PRN PRN Reason: Pain Last Admin: 12/26/17 21:27 Dose: 1 patch Loperamide HCl (Imodium) 2 mg PO PRN PRN PRN Reason: Diarrhea/Loose Stools Last Admin: 12/27/17 15:50 Dose: 2 mg Miscellaneous Medication (Lidocaine Patch Removal) 1 each TOP 2100 [facility] Last Admin: 12/28/17 20:45 Dose: Not Given Pyridostigmine [place] (Mestinon) 60 mg PO Q6H [facility] Last Admin: 12/29/17 12:33 Dose: 60 mg Repaglinide (Prandin) 0.5 mg PO AC [facility] Last Admin: 12/29/17 12:34 Dose: 0.5 mg Tramadol HCl (Ultram) 50 mg PO Q6H PRN PRN Reason: Moderate Pain (4-6) Last Admin: 12/29/17 09:03 Dose: 50 mg
[2017-12-29] MEDS: Diabetic Tussin 200 MG/10 ML UDCUP PO PRN (15:04)
[2017-12-29] MEDS: Amitriptyline HCl 25 MG TAB PO SCH (20:50)
[2017-12-29] MEDS: Lidocaine Patch Removal 1 EACH TOP SCH (20:51)
[2017-12-30] MEDS: Diabetic Tussin 200 MG/10 ML UDCUP PO PRN (00:01)
[2017-12-30] MEDS: HYDROcodone/Acetaminophen 10/325 mg Tablet PO PRN ×2 (05:00→11:41)
[2017-12-30] MEDS: Loperamide HCl 2 MG CAP PO PRN ×2 (05:00→10:58)
[2017-12-30] MEDS: Pyridostigmine Bromide IR 60 MG TAB PO SCH ×2 (05:01→10:20)
[2017-12-30] MEDS: Levothyroxine Sodium 125 MCG TAB PO SCH (05:01)
[2017-12-30 08:21] VITALS: TEMP 97.9
[2017-12-30 08:31] LABS: #Basophils 0.1 thou/uL (0.0-0.2); #Eosinphils 0.2 thou/uL (0.0-0.7); #Lymphocytes 3.1 thou/uL (1.20-3.40); #Monocytes 0.7 thou/uL (0.11-0.59); #Neutrophils 4.7 thou/uL (1.40-6.50); %Basophils 0.9 % (0.0-1.0); %Eosinophils 2.6 % (0.0-10.0); %Lymphocytes 35.2 % (21.0-51.0); %Neutrophils 53.4 % (42.0-75.0); Hemoglobin 10.1 g/dL (12.0-16.0); Mean Corpuscular HGB CONC 31.9 g/dL (32.0-36.0); Mean Corpuscular Hemoglobin 27.4 pg (27.0-31.0); Mean Platelet Volume 6.9 fL (7.4-10.4); Platelet Count 396 thou/uL (130-400); RBC Distribution Width 14.4 % (11.5-14.5); Red Blood Cell (RBC) Count 3.67 mill/uL (4.20-5.40); White Blood Cell (WBC) Count 8.7 thou/uL (4.8-10.8)
[2017-12-30 08:44] LABS: ALT (SGPT) 24 U/L (8-55); AST (SGOT) 25 U/L (5-34); Albumin 3.4 g/dL (3.4-4.8); Alkaline Phosphatase 66 U/L (40-150); Anion Gap 12 mmol/L (10-20); BUN (Urea Nitrogen) 20 mg/dL (9.8-20.1); Bilirubin, Total 0.3 mg/dL (0.2-1.2); Calc. Creatinine Clearance 34 mL/min (70-130); Calcium 9.2 mg/dL (7.8-10.44); Carbon Dioxide 23 mmol/L (23-31); Chloride 109 mmol/L (98-107); Estimated GFR-MDRD 29; Globulin 2.9 g/dL (2.4-3.5); Glucose 250 mg/dL (83-110); Potassium 4.3 mmol/L (3.5-5.1); Protein, Total 6.3 g/dL (6.0-8.3); Sodium 140 mmol/L (136-145)
[2017-12-30] MEDS: Ezetimibe 10 MG TAB PO SCH (08:56)
[2017-12-30] MEDS: Famotidine 20 MG TAB PO SCH (08:57)
[2017-12-30] MEDS: Benzonatate 100 MG CAP PO SCH (08:58)
[2017-12-30] MEDS: Heparin 5,000 UNITS/ML VIAL SC SCH (09:01)
[2017-12-30] MEDS: Amoxicillin/Potassium Clav 500 MG TAB PO SCH (10:14)
--- NOTE | 2017-12-30 11:05 | PRG ---
DATE OF SERVICE: 12/30/2017 SUBJECTIVE: The patient is definitely better today in terms of her vocalization. OBJECTIVE: VITAL SIGNS: Temperature 97.9, pulse 69, respiration 16, O2 sat 95%, blood pressure 91/61. HEENT: Unremarkable. NECK: No JVD. LUNGS: Clear. CARDIAC: S1 and S2 regular. ABDOMEN: Soft. EXTREMITIES: No edema. LABORATORY DATA: White blood cell count 8.7, hematocrit 31.9, platelet count 396,000. Sodium 140, p otassium 4.3, chloride 109, CO2 23, BUN 20, creatinine 1.7, glucose 250. ASSESSMENT: Improved vocal cord dysfunction -- probably looking at some type of viral syndrome here. Myasthenia was put in the differential by Neurology, but I would be very doubtful if that is the di agnosis. PLAN: Continue conservative therapy. Dr. Ren is going to put her on low dose of steroids. The mala mcwilliams can follow up with Dr. Olmedo in a couple of weeks.
[2017-12-30] MEDS ORDERED: predniSONE 20 MG TAB PO SCH (11:30)
--- NOTE | 2017-12-30 12:12 | PDOC.PN ---
- Subjective Encounter Start Date: 12/30/17 Encounter Start Time: 09:40 Subjective: voice is better, no sob -: wants to go home - Objective Resuscitation Status: Resuscitation Status FULL:Full Resuscitation MAR Reviewed: Yes Vital Signs & Weight: Vital Signs (12 hours) Temp Pulse Resp BP Pulse Ox 12/30/17 08:15 97.9 F 69 16 91/61 95 12/30/17 08:00 97.9 F 69 16 95 12/30/17 04:00 98 F 71 16 110/66 94 L Weight Weight 157 lb 13.616 oz Most Recent Monitor Data Heart Rate from ECG 76 NIBP 99/54 NIBP BP-Mean 74 Respiration from ECG 16 SpO2 91 I&O: 12/29/17 12/30/17 12/31/17 06:59 06:59 06:59 Intake Total 1650 Balance 1650 Result Diagrams: 12/30/17 08:13 12/30/17 08:13 Additional Labs: Accuchecks 12/30/17 12/29/17 12/29/17 11:14 20:44 15:48 POC Glucose 131 H 167 H 175 H Phys Exam - Physical Examination HEENT: PERRLA, moist MMs Neck: no JVD, supple Respiratory: no wheezing, no rales Cardiovascular: RRR, no significant murmur Gastrointestinal: soft, non-tender, positive bowel sounds Musculoskeletal: no edema, pulses present Neurological: non-focal, moves all 4 limbs Psychiatric: A&O x 3 Dx/Plan (1) Bilateral vocal cord paralysis Code(s): J38.02 - PARALYSIS OF VOCAL CORDS AND LARYNX, BILATERAL Status: Acute (2) Acute exacerbation of CHF (congestive heart failure) Code(s): I50.9 - HEART FAILURE, UNSPECIFIED Status: Acute Qualifiers: Heart failure type: diastolic Qualified Code(s): I50.33 - Acute on chronic diastolic (congestive) heart failure (3) Chronic anemia Code(s): D64.9 - ANEMIA, UNSPECIFIED Status: Chronic (4) SOLO (acute kidney injury) Code(s): N17.9 - ACUTE KIDNEY FAILURE, UNSPECIFIED Status: Resolved (5) CKD (chronic kidney disease) stage 3, GFR 30-59 ml/min Code(s): N18.3 - CHRONIC KIDNEY DISEASE, STAGE 3 (MODERATE) Status: Chronic (6) Physical deconditioning Code(s): R53.81 - OTHER MALAISE Status: Chronic (7) Osteoarthritis Code(s): M19.90 - UNSPECIFIED OSTEOARTHRITIS, UNSPECIFIED SITE Status: Chronic Qualifiers: Osteoarthritis location: multiple joints Osteoarthritis type: primary Qualified Code(s): M15.0 - Primary generalized (osteo)arthritis - Plan is intolerant to mestinon -: on prednisone -: augmentin -: dc pt home, has been cleared for dc by pulm/neuro service * . Review of Systems - Medications/Allergies Allergies/Adverse Reactions: Allergies Allergy/AdvReac Type Severity Reaction Status Date / Time iodine Allergy Verified 04/03/15 00:03 shellfish derived Allergy Verified 04/03/15 00:03 venom-honey bee Allergy Verified 04/03/15 05:05 [bee venom (honey bee)] Medications: Current Medications Acetaminophen (Tylenol) 650 mg PO BID PRN PRN Reason: Mild Pain (1-3) Last Admin: 12/29/17 17:47 Dose: 650 mg Hydrocodone Bitart/Acetaminophen ([place] 10/325) 1 tab PO Q6H PRN PRN Reason: Severe Pain (7-10) Last Admin: 12/30/17 11:41 Dose: 1 tab Albuterol Sulfate (Proventil Hfa) 1 puff INH Q4H PRN PRN Reason: Cough Amitriptyline HCl (Elavil) 50 mg PO HS [facility] Last Admin: 12/29/17 20:50 Dose: 50 mg Amoxicillin/Clavulanate Potassium (Augmentin) 500 mg PO BID [facility] Stop: 01/04/18 21:01 Last Admin: 12/30/17 10:14 Dose: 500 mg Benzonatate (Tessalon) 100 mg PO Q4H PRN PRN Reason: Cough Last Admin: 12/30/17 11:39 Dose: 100 mg Benzonatate (Tessalon) 100 mg PO TID [facility]E Last Admin: 12/30/17 08:58 Dose: 100 mg Benzonatate (Tessalon) 200 mg PO TID PRN PRN Reason: Cough Last Admin: 12/27/17 05:21 Dose: 200 mg Cholecalciferol (Vitamin D3) 5,000 units PO DAILY [facility] Last Admin: 12/30/17 08:57 Dose: 5,000 units Dextrose/Water (Dextrose 50%) 25 gm SLOW IVP PRN PRN PRN Reason: Hypoglycemia Ezetimibe (Zetia) 10 mg PO DAILY [facility] Last Admin: 12/30/17 08:56 Dose: 10 mg Famotidine (Pepcid) 20 mg PO 0900 [facility] Last Admin: 12/30/17 08:57 Dose: 20 mg Glucagon (Glucagon) 1 mg IM PRN PRN PRN Reason: Hypoglycemia Guaifenesin (Robitussin Sf) 100 mg PO Q4H PRN PRN Reason: Cough Last Admin: 12/30/17 00:01 Dose: 100 mg Guaifenesin/Codeine Phosphate (Robitussin Ac) 10 ml PO Q4H PRN PRN Reason: Cough Last Admin: 12/28/17 17:55 Dose: 10 ml Heparin Sodium (Porcine) (Heparin) 5,000 units SC TID [facility] Last Admin: 12/30/17 09:01 Dose: 5,000 units Dextrose/Water (D5w) 1,000 mls @ 0 mls/hr IV .Q0M PRN; As Directed PRN Reason: Hypoglycemia Insulin Human Lispro (Humalog) 0 units SC .MODERATE SLIDING SC PRN PRN Reason: Moderate Correctional Scale Last Admin: 12/26/17 04:54 Dose: 2 unit Levothyroxine Sodium (Synthroid) 125 mcg PO 0600 [facility] Last Admin: 12/30/17 05:01 Dose: 125 mcg Lidocaine (Lidoderm 5% Patch) 1 patch TD DAILY PRN PRN Reason: Pain Last Admin: 12/26/17 21:27 Dose: 1 patch Loperamide HCl (Imodium) 2 mg PO PRN PRN PRN Reason: Diarrhea/Loose Stools Last Admin: 12/30/17 10:58 Dose: 2 mg Miscellaneous Medication (Lidocaine Patch Removal) 1 each TOP 2100 [facility] Last Admin: 12/29/17 20:51 Dose: Not Given Prednisone (Prednisone) 20 mg PO DAILY [facility] Prednisone (Prednisone) 20 mg PO 1130 [facility] Stop: 12/30/17 14:00 Last Admin: 12/30/17 11:41 Dose: 20 mg Repaglinide (Prandin) 0.5 mg PO AC [facility] Last Admin: 12/30/17 11:38 Dose: 0.5 mg Tramadol HCl (Ultram) 50 mg PO Q6H PRN PRN Reason: Moderate Pain (4-6) Last Admin: 12/29/17 09:03 Dose: 50 mg
[2017-12-30 13:09] VITALS: BP 108/51
--- NOTE | 2017-12-30 14:25 | DIS ---
DATE OF ADMISSION: 12/25/2017 DATE OF DISCHARGE: 12/30/2017 DISCHARGE DISPOSITION: To home. PRIMARY DISCHARGE DIAGNOSES: Bilateral vocal cord paralysis likely due to viral illness versus myasthenia, acute exacerbation of congestive heart failure with diastolic dysfunction resolved, chronic anemia, acute kidney injury resolved, chronic kidney disease stage III, osteoarthritis of both hips with poor functional status. PROCEDURES DONE DURING HOSPITALIZATION: Patient has had soft tissue neck x-ray done which showed subglottic tracheal narrowing suggestive of edema. No supraglottic airway narrowing was seen. There is high grade cervical spondylosis. MRI C-spine done showed multilevel spondylosis and neural foraminal narrowing, mild paranasal sinus disease was seen. MRI brain done showed no acute infarct or bleed. Viral PCR of nasopharyngeal swab was positive for parainfluenza 3, hemoglobin and hematocrit 10 and 31 with platelet count of 396. Discharge BUN and creatinine is 20 and 1.7. CK levels were 1216. On the day of admission, BNP is 24. DISCHARGE MEDICATIONS: Prednisone 20 mg p.o. daily for suspected myasthenia, Augmentin 500 mg p.o. twice daily for another 4 days, albuterol inhaler q.4 hourly p.r.n., calcium with vitamin D, Trulicity once weekly, Zetia 10 mg b.i.d. , Pepcid 20 mg daily, Synthroid 125 mcg p.o. daily, multivitamin 1 tab once daily, and repaglinide 0.5 mg p.o. before meals. ALLERGIES: IODINE, SHELLFISH and HONEY BEE VENOM. INPATIENT CONSULTS: Dr. Olmedo for Pulmonology and Critical Care, Dr. Trevon Dalton for ENT, Dr. Edmond for Neurology. DISCHARGE PLAN: Patient to follow up with Dr. Edmond in 2 weeks, Dr. Olmedo in 2 weeks and primary care physician in 1 week. She also needs follow up with Dr. Trevon Dalton for ENT in 1 week. BRIEF COURSE DURING HOSPITALIZATION: Patient initially got admitted on with complaints of sudden onset of shortness of breath and hoarseness. Patient also was apparently having stridor and was given racemic epinephrine and steroids in the ER. She was initially admitted to [facility] for close monitoring and has had consultation with Dr. Olmedo for Pulmonology. The patient had ENT evaluation at bedside and was found to have had bilateral vocal cord paralysis. In view of this, a Neurology consultation with Dr. Edmond was requested. She has had MRI brain and C-spine which has not revealed any acute abnormalities. She was placed on a trial of Mestinon for which patient was intolerant and she has been placed on 20 mg of prednisone. Meanwhile, her viral PCR was positive for parainfluenza virus type 3. Her complete hoarseness is slowly resolving with patient being able to communicate better now. It is likely due to viral illness, but there is a suspicion for possible myasthenia. She needs to follow up with Dr. Siva Edmond for Neurology as advised. She is hemodynamically stable and is comfortable breathing and maintaining airway. Patient is cleared for discharge by specialists. Please see a face to face documentation on [facility] for the day of discharge. [facility]
[2017-12-31] MEDS ORDERED: predniSONE 20 MG TAB PO SCH (09:00)
--- NOTE | 2018-01-31 15:04 | EKG ---
Test Reason : Blood Pressure : / mmHG Vent. Rate : 104 BPM Atrial Rate : 104 BPM P-R Int : 122 ms QRS Dur : 086 ms QT Int : 324 ms P-R-T Axes : 000 044 015 degrees QTc Int : 426 ms Sinus tachycardia Nonspecific ST and T wave abnormality Abnormal ECG Confirmed by IVA JACQUES ([id number]), associate entertainment editor MATHIEU MAHONEY ([id number]) on 01/31/2018 3:03:51 PM Referred By: Confirmed By:IVA JACQUES
== END 2017-12-30 13:10 | disposition home or self-care (01) | DRG 154 ==
LOC: ERS 21:33 → ERHOLD 12-25 01:01 → CCU 12-25 06:50 → IMCU/EMU 12-26 17:25 → SURG A 12-28 18:26
PROVIDERS: ADMIT Internal Medicine; ATTEND Internal Medicine
DX: J38.02 Paralysis of vocal cords and larynx, bilateral (principal); J96.21 Acute and chronic respiratory failure with hypoxia; I50.33 Acute on chronic diastolic (congestive) heart failure; N17.9 Acute kidney failure, unspecified; J96.22 Acute and chronic respiratory failure with hypercapnia; I13.0 Hypertensive heart and chronic kidney disease with heart failure and stage 1 through stage 4 chronic kidney disease, or unspecified chronic kidney disease; E11.22 Type 2 diabetes mellitus with diabetic chronic kidney disease; G70.9 Myoneural disorder, unspecified; E07.9 Disorder of thyroid, unspecified; G89.29 Other chronic pain; G25.81 Restless legs syndrome; Z91.14 Patient's other noncompliance with medication regimen; E78.5 Hyperlipidemia, unspecified; Z79.82 Long term (current) use of aspirin; N18.3 Chronic kidney disease, stage 3 (moderate); Z79.4 Long term (current) use of insulin; D63.1 Anemia in chronic kidney disease; M16.0 Bilateral primary osteoarthritis of hip; M47.812 Spondylosis without myelopathy or radiculopathy, cervical region; M79.7 Fibromyalgia; B34.8 Other viral infections of unspecified site
CPT/HCPCS: 36415; 36416; 70360; 70551; 72141; 80048; 80053; 82330; 82553; 82803; 82805; 83690; 83880; 84484; 85025; 85379; 85610; 85730; 87070; 87633; 87798; 93005; 94640; 94760; 96361; 96374; 96376; G8978-GP-CM; G8979-GP-CK; J1100; J1644; J7506; J7620

== ENCOUNTER 2018-05-03 08:40 | Outpatient (CLI) | payer MEDICARE, OTHER | END 2018-05-03 08:41 | disposition home or self-care (01) | LOC: BICRAD 08:40 | PROVIDERS: ATTEND Internal Medicine | DX: R09.1 Pleurisy (principal) | CPT/HCPCS: 71046 ==

== ENCOUNTER 2018-12-13 08:31 | Emergency (ER) | payer MEDICARE, OTHER ==
[2018-12-13] MEDS ORDERED: Morphine 4 MG/ML VIAL ONE ×2 (09:07→09:47)
[2018-12-13 09:21] LABS: #Basophils 0.1 thou/uL (0.0-0.2); #Eosinphils 0.2 thou/uL (0.0-0.7); #Lymphocytes 1.9 thou/uL (1.20-3.40); #Monocytes 0.6 thou/uL (0.11-0.59); %Eosinophils 2.8 % (0.0-10.0); %Lymphocytes 28.3 % (21.0-51.0); %Monocytes 8.9 % (0.0-10.0); Hemoglobin 11.2 g/dL (12.0-16.0); Mean Corpuscular HGB CONC 31.2 g/dL (32.0-36.0); Mean Corpuscular Hemoglobin 27.1 pg (27.0-31.0); Mean Corpuscular Volume 86.8 fL (78.0-98.0); Mean Platelet Volume 7.4 fL (7.4-10.4); Platelet Count 273 thou/uL (130-400); RBC Distribution Width 14.8 % (11.5-14.5); Red Blood Cell (RBC) Count 4.12 mill/uL (4.20-5.40); White Blood Cell (WBC) Count 6.8 thou/uL (4.8-10.8)
[2018-12-13 09:46] LABS: ALT (SGPT) 22 U/L (8-55); AST (SGOT) 27 U/L (5-34); Alkaline Phosphatase 82 U/L (40-150); Anion Gap 16 mmol/L (10-20); BUN (Urea Nitrogen) 25 mg/dL (9.8-20.1); Bilirubin, Total 0.4 mg/dL (0.2-1.2); Calc. Creatinine Clearance 0 mL/min (70-130); Calcium 10.3 mg/dL (7.8-10.44); Carbon Dioxide 25 mmol/L (23-31); Chloride 105 mmol/L (98-107); Estimated GFR-MDRD 30; Globulin 2.6 g/dL (2.4-3.5); Glucose 141 mg/dL (83-110); Lipase 18 U/L (8-78); Potassium 4.6 mmol/L (3.5-5.1); Protein, Total 6.6 g/dL (6.0-8.3); Sodium 141 mmol/L (136-145)
--- NOTE | 2018-12-13 11:24 | CT ---
ABDOMEN AND PELVIC CT SCAN WITH IV CONTRAST: Date: 12/13/18 HISTORY: Abdominal pain, worst in the epigastric and right upper quadrant, now becoming a stabbing pain radiat ing to the left. COMPARISON: 12/07/14. FINDINGS: Mild bilateral pleural thickening and minimal linear and parenchymal changes in both lower lobes, hav ing more the appearance of chronic change. Status post cholecystectomy without ductal dilatation. Pos toperative changes involving the stomach with a small hiatal hernia. The visualized pancreas and sple en are unremarkable. 1.5 cm left adrenal adenoma. Small kidneys bilaterally without evidence for robert l calculus, mass, or acute obstruction. Very small fat-containing umbilical hernia. No CT evidence for acute appendicitis. Small uterus with a calcified fibroadenoma. Significant spondylolisthesis at L5-S1 with associated lumbar stenosis. No abscess, adenopathy, or abnormal fluid collection. IMPRESSION: No significant acute process in the abdomen or pelvis. Small left adrenal adenoma. Other findings as above. POS: [facility]
== END 2018-12-13 11:50 | disposition home or self-care (01) ==
LOC: ERS 08:31
DX: R10.13 Epigastric pain (principal); R10.11 Right upper quadrant pain; E11.9 Type 2 diabetes mellitus without complications; E78.5 Hyperlipidemia, unspecified; I10 Essential (primary) hypertension; M79.7 Fibromyalgia; N28.9 Disorder of kidney and ureter, unspecified; Z79.899 Other long term (current) drug therapy
CPT/HCPCS: 36415; 74176; 80053; 83690; 84484; 85025; 93005; 94640; 96374; J2270; J7620

== ENCOUNTER 2018-12-16 09:27 | Outpatient (CLI) | payer MEDICARE, OTHER ==
--- NOTE | 2018-12-16 11:22 | RAD ---
PA AND LATERAL CHEST: INDICATIONS: Cough. COMPARISON: Prior chest radiograph dated 09/02/2008. FINDINGS: The interstitial thickening involving the lower lobes, likely related to fibrosis, is stable. Mild c ardiomegaly is stable. The aorta is tortuous. No confluent air space opacity or pleural effusion is noted. There are stable post surgical changes of a prior rotator cuff repair. IMPRESSION: Stable fibrotic change and mild cardiomegaly. No acute cardiopulmonary abnormality. POS: [facility]
--- NOTE | 2018-12-16 13:42 | MMO ---
Bilateral MAMMO Bilat Screen [facility]. CLINICAL HISTORY: Patient is 73 years old and is seen for screening. The patient has no family history of breast cancer. The patient has no personal history of cancer. The patient has a history of left Excisional Biopsy in December, - benign. VIEWS: The views performed were: bilateral craniocaudal with tomosynthesis and bilateral mediolateral oblique with tomosynthesis. FILMS COMPARED: The present examination has been compared to prior imaging studies performed at [address] [place] [address]/[facility] on 07/14/2004 and 12/04/2005, and at [facility] on 02/27/2007, 03/16/2008, 03/23/2009, 03/24/2010, 03/27/2011, 04/03/2012 and 03/22/2017. MAMMOGRAM FINDINGS: The breasts are heterogeneously dense, which could obscure a lesion on mammography. Finding 1: There are vascular calcifications seen in both breasts. Finding 2: There are benign appearing calcifications seen in both breasts. Finding 3: There is a biopsy clip seen in the left breast. There are no suspicious masses, calcifications or areas of architectural distortion. IMPRESSION: ALL ABOVE FINDINGS ARE BENIGN. A ROUTINE FOLLOW-UP MAMMOGRAM IN 1 YEAR IS RECOMMENDED. THE RESULTS OF THIS EXAM WERE SENT TO THE PATIENT. ACR BI-RADS Category 2 - Benign finding MAMMOGRAPHY NOTE: 1. A negative mammogram report should not delay a biopsy if a dominant of clinically suspicious mass is present. 2. Approximately 10% to 15% of breast cancers are not detected by mammography. 3. Adenosis and dense breasts may obscure an underlying neoplasm.
== END 2018-12-16 09:28 | disposition home or self-care (01) ==
LOC: BICRAD 09:27
PROVIDERS: ATTEND Internal Medicine
DX: Z12.31 Encounter for screening mammogram for malignant neoplasm of breast (principal); R05 Cough; I51.7 Cardiomegaly
CPT/HCPCS: 71046; 77063; 77067

== ENCOUNTER 2019-03-25 19:30 | Outpatient (CLI) | payer MEDICARE, OTHER | END 2019-03-25 19:31 | disposition home or self-care (01) | LOC: SLEEPLAB 19:30 | PROVIDERS: ATTEND Internal Medicine | DX: G47.33 Obstructive sleep apnea (adult) (pediatric) (principal) | CPT/HCPCS: 95810 ==

== ENCOUNTER 2019-04-30 07:37 | Outpatient (CLI) | payer MEDICARE, OTHER ==
--- NOTE | 2019-04-30 11:21 | MRI ---
MRI LEFT SHOULDER PERFORMED WITHOUT CONTRAST ENHANCEMENT: Date: 04/30/19 HISTORY: Left shoulder pain. FINDINGS: Some motion artifact degrades detail. There is moderate arthrosis of the AC joint. There is a full thickness far anterior supraspinatus tendon tear. The tear involves the anterior fibe rs, which are retracted by approximately 11 mm. This continues as a moderately high grade undersurfac e tear involving the more posterior fibers of the supra and also extends to involve some of the anter ior fibers of the infraspinatus tendon. The AP dimension of the full thickness component of the tear is approximately 9 mm. There is some evidence of some delamination as there is some fluid density ext ending in the musculotendinous junction of the infraspinatus. There is some moderate tendinosis of the superior fibers of the subscapularis tendon. Biceps tendon d oes appear to be in normal position within the bicipital groove. There is increased signal change associated with the superior labrum suggesting degeneration and more of a chronic tear. There appears to be tendinosis of the interarticular portion of the biceps. The inferior glenohumeral ligamentous labral complex appears intact. IMPRESSION: 1. Full thickness, partial width, supraspinatus tendon tear. The full thickness component involves t he anterior half of the tendon, but there is also fairly significant undersurface component involving the posterior half and event extending into the anterior fibers of the infraspinatus. 2. No significant rotator cuff muscle atrophy. 3. Chronic appearing tear of the superior labrum and tendinosis of the interarticular portion of the biceps tendon. POS: [facility]
== END 2019-04-30 07:38 | disposition home or self-care (01) ==
LOC: TBSIIMAG 07:37
PROVIDERS: ATTEND Orthopaedic Surgery
DX: M75.102 Unspecified rotator cuff tear or rupture of left shoulder, not specified as traumatic (principal); M75.122 Complete rotator cuff tear or rupture of left shoulder, not specified as traumatic; S43.492A Other sprain of left shoulder joint, initial encounter; M75.92 Shoulder lesion, unspecified, left shoulder

== ENCOUNTER 2019-05-07 07:22 | Outpatient (CLI) | payer MEDICARE, OTHER ==
--- NOTE | 2019-05-07 10:49 | CT ---
CT THORAX NONCONTRAST: (High-resolution chest CT) DATE: 05/07/2019 HISTORY: 74-year-old female with "pulmonary fibrosis" Technique: 1.25 mm slice thickness and 10 mm intervals. Supine and prone scanning. FINDINGS: There are no subpleural reticular changes. No bronchiectasis or honeycombing. No consolidation. Small region of nonspecific groundglass density at posterior medial aspect of right lower lobe. No cardiomegaly. Heterogeneously low attenuation in right lobe of liver. No cardiomegaly or splenomegaly . No thoracic aortic aneurysm. Calcification of LAD and LCx. No pleural effusion or pneumothorax. Mild scattered pulmonary scarring at lingula, which was meant by the report of recent chest radiograp h of 12/16/2018. No bullous disease. No high-grade Central lobular emphysema. Disclaimer: Because of the 10 mm gaps, this study is only seen meant for evaluation for interstitial lung disease , and no other entity, especially not neoplasm. IMPRESSION: 1. No active pulmonary disease. No pulmonary fibrosis. 2. Coronary atherosclerosis due to calcified coronary lesion ICD-10: I 25.84
--- NOTE | 2019-05-07 15:28 | PFT ---
PATIENT HISTORY: HEIGHT: 61 in WEIGHT: 185 SMOKER: no HOW LONG: never PACKS PER DAY PRODUCTIVE COUGH: LUNG DISEASE: PHYSICIAN INTERPRETATION FINAL REPORT: Normal Vital Capacity and Expiratory Flows. No further improvement after Bronchodilator Therapy RV normal, RV/TLC normal. Airway resistance slightly increased. Gas transfer at the lower limit of normal IMPRESSION: mild reduction in diffusion capacity, otherwise normal pulmonary function test. Vice President Research: [employer] Center Manager: PENELOPE DELEON
== END 2019-05-07 07:23 | disposition home or self-care (01) ==
LOC: CP 07:22 → CT 07:23
PROVIDERS: ATTEND Internal Medicine
DX: J84.10 Pulmonary fibrosis, unspecified (principal); I25.84 Coronary atherosclerosis due to calcified coronary lesion
CPT/HCPCS: 71250; 94060; 94727; 94729

== ENCOUNTER 2019-05-09 06:24 | Day surgery (SDC) | payer MEDICARE, OTHER ==
[2019-05-06 13:40] VITALS: BMI 34.9
[2019-05-09] MEDS ORDERED: ceFAZolin Sodium (SDC) 2 GM/100 ML BAG ONE (07:33)
[2019-05-09] MEDS ORDERED: Fentanyl 100 MCG/2 ML VIAL ONE (07:42)
[2019-05-09] MEDS ORDERED: Midazolam HCl 2 mg/2 ml Vial ONE (07:42)
[2019-05-09] MEDS ORDERED: Ondansetron PF 4 MG/2 ML Vial IVP PRN (08:23)
[2019-05-09] MEDS ORDERED: Zolpidem Tartrate 5 MG TAB PO PRN (08:23)
[2019-05-09] MEDS ORDERED: traMADol HCl 50 MG TAB PO PRN ×2 (08:23)
[2019-05-09] MEDS ORDERED: Fentanyl 100 MCG/2 ML VIAL IV PRN (08:23)
[2019-05-09] MEDS ORDERED: Ropivacaine 0.2% 550 ML 550 ML NERVE BLCK SCH (08:23)
[2019-05-09] MEDS ORDERED: Promethazine HCl 25 MG/ML VIAL IM PRN (08:23)
[2019-05-09] MEDS ORDERED: HYDROcodone/Acetaminophen 7.5/325 mg Tablet PO PRN ×2 (08:24)
--- NOTE | 2019-05-09 11:23 | OP ---
DATE OF PROCEDURE: 05/09/2019 PREOPERATIVE DIAGNOSES: Rotator cuff tear and biceps tendon split and impingement. POSTOPERATIVE DIAGNOSES: Rotator cuff tear and biceps tendon split and impingement. PROCEDURES PERFORMED: Debridement of rotator cuff tear, acromioplasty, and biceps tenotomy arthroscopically. ANESTHESIA: General. ESTIMATED BLOOD LOSS: Minimal. SPECIMENS: None. DRAINS: None. COMPLICATIONS: None. OPERATIVE INDICATIONS: I had initially planned to do a biceps tenodesis and rotator cuff repair. However, during the procedure, her bone quality was so poor that every suture anchor I tried including SwiveLock and Corkscrew suture anchors fell out of the bone because of the extremely poor bone quality and rotator cuff repair was not possible. Therefore, I elected not to do a tenodesis as this also would likely fail and I performed a tenotomy. DESCRIPTION OF PROCEDURE: The patient was placed in the right lateral decubitus position. The left arm was prepped and draped in usual sterile fashion. Scope was placed in the glenohumeral joint, where she had a very fibrillated split biceps tendon. No significant arthritis. Attention was turned to the rotator cuff. Some moderate sized rotator cuff tear. I debrided the margins of rotator cuff. I just gently removed soft tissue from the humeral head, but I did not decorticate the humeral head. I tried to pass a Corkscrew suture anchor metal through the bone and this anchor basically cut through the bone extremely easily and when applied tension to the anchor, it pulled out. I then tried to use a SwiveLock with a slightly larger thread diameter and also this anchor pulled out. After trying this several times, I realized that it was a possible repair of rotator cuff because there was no way to obtain any fixation in the bone of the humeral head. Therefore, I debrided the rotator cuff tear, performed anterior and inferior acromioplasty and performed a biceps tenotomy. Irrigation was performed. The shoulder was drained and ports were closed with nylon suture. Job ID: [id number]
[2019-05-09] MEDS ORDERED: Morphine 2 MG/ML SYRINGE ONE (12:05)
== END 2019-05-09 14:05 | disposition home or self-care (01) ==
LOC: SDC 06:24
PROVIDERS: ATTEND Orthopaedic Surgery
PROC: 0RBK4ZZ Excision of Left Shoulder Joint, Percutaneous Endoscopic Approach (ICD-10-PCS; principal; 2019-05-09)
DX: M75.102 Unspecified rotator cuff tear or rupture of left shoulder, not specified as traumatic (principal); S46.212A Strain of muscle, fascia and tendon of other parts of biceps, left arm, initial encounter; E03.9 Hypothyroidism, unspecified; I10 Essential (primary) hypertension; E11.9 Type 2 diabetes mellitus without complications; E78.00 Pure hypercholesterolemia, unspecified; M19.90 Unspecified osteoarthritis, unspecified site; M10.9 Gout, unspecified; K21.9 Gastro-esophageal reflux disease without esophagitis; Z98.84 Bariatric surgery status; Z91.041 Radiographic dye allergy status; Z91.013 Allergy to seafood; Z91.030 Bee allergy status; Z79.84 Long term (current) use of oral hypoglycemic drugs; Z79.899 Other long term (current) drug therapy
CPT/HCPCS: 29822; 93005; 97139; A4306; C1713 ×2; 93010; J0690; J2250; J2270; J2795; J3010

== ENCOUNTER 2019-09-25 14:41 | Outpatient (CLI) | payer MEDICARE, OTHER ==
--- NOTE | 2019-09-25 15:35 | BD ---
Exam: DEXA Bone Density 09/25/19 HISTORY: Postmenopausal screening for osteoporosis. Lumbar Spine: BMD (g/cm2) T-SCORE Z-SCORE L1 0.860 -1.2 0.9 L2 0.938 -0.8 1.5 L3 0.995 -0.8 1.7 L4 1.019 -0.4 2.2 L1-L4 1.954 -0.8 1.5 Femoral Neck: 0.584 -0.4 -0.4 Total Femur: 0.909 -0.3 1.4 There has been interval improvement of 3.7% in the BMD of the lumbar spine and improvement of 1.5% in the BMD of the proximal humerus since 01/10/12. Impression: Osteopenia. POS: [facility]
== END 2019-09-25 14:42 | disposition home or self-care (01) ==
LOC: BICMAMMO 14:41
PROVIDERS: ATTEND Internal Medicine
DX: Z13.820 Encounter for screening for osteoporosis (principal); Z78.0 Asymptomatic menopausal state; M85.88 Other specified disorders of bone density and structure, other site
CPT/HCPCS: 77080

== ENCOUNTER 2019-11-20 18:25 | Emergency (ER) | payer MEDICARE, OTHER ==
--- NOTE | 2019-11-20 19:04 | RAD ---
XR Hip Lt 2-3 View INDICATION: Fall with left hip pain COMPARISON: April 02, 2015 FINDINGS: Bones: No acute fracture or subluxation demonstrated. Small endosteal lucency involving the proximal left femoral diaphysis is stable. Hip joint: Mild left hip osteoarthrosis. SI joints and symphysis pubis: Radiographically normal. Intrapelvic contents: Visualized bowel gas pattern is within normal limits. Surrounding soft tissues: There are moderate vascular calcifications seen involving the visualized va sculature. IMPRESSION: 1. Vascular fracture
--- NOTE | 2019-11-20 20:18 | CT ---
NONCONTRAST CT HEAD: 11/20/19 HISTORY: Patient reports falling earlier today and hitting head. Injury after hitting head. COMPARISON: 12/07/14. FINDINGS: There is no evidence of a hemorrhage, acute infarction, mass effect or midline shift. Mild cerebral v olume loss is again seen similar to prior exam. The ventricular system is normal in size, shape and p osition. The visualized paranasal sinuses and mastoid air cells are clear. No calvarial fracture is seen. Prom inent vascular calcifications are again seen in the carotid siphons. IMPRESSION: No acute intracranial abnormalities demonstrated. POS: [facility]
== END 2019-11-20 20:41 | disposition home or self-care (01) ==
LOC: ERS 18:25
DX: S09.90XA Unspecified injury of head, initial encounter (principal); S70.02XA Contusion of left hip, initial encounter; M79.7 Fibromyalgia; M19.90 Unspecified osteoarthritis, unspecified site; E11.9 Type 2 diabetes mellitus without complications; E78.5 Hyperlipidemia, unspecified; E78.00 Pure hypercholesterolemia, unspecified; I10 Essential (primary) hypertension; Z79.899 Other long term (current) drug therapy; Z79.84 Long term (current) use of oral hypoglycemic drugs; W01.10XA Fall on same level from slipping, tripping and stumbling with subsequent striking against unspecified object, initial encounter; Y93.G3 Activity, cooking and baking; Y92.000 Kitchen of unspecified non-institutional (private) residence as the place of occurrence of the external cause
CPT/HCPCS: 70450

== ENCOUNTER 2019-12-02 11:08 | Outpatient (CLI) | payer MEDICARE, OTHER ==
--- NOTE | 2019-12-02 11:44 | RAD ---
EXAM: XR Sacrum and Coccyx STANDARD DATE: 12/02/2019 12:00 AM INDICATION: Coccygeal pain after fall COMPARISON: None. FINDIN images total. There is calcified fibroid seen within the left aspect of the pelvis. There is diffuse osteopenia. Th ere is moderate degenerative change of both SI joints. There are bilateral pars defects at L5 with grade 1 anterolisthesis. No acute fracture or subluxation demonstrated. IMPRESSION:No acute fracture or subluxation demonstrated.
--- NOTE | 2019-12-02 11:46 | RAD ---
Lumbar spine 2 views HISTORY: Low back pain. FINDINGS: Minimal chronic appearing wedging of the T11 and T12 vertebral bodies on the lateral view w ith prominent osteophytosis. Lumbar vertebral body heights are maintained. There are 5 lumbar type vertebrae. Pedicles are intact. Rightward convex rotatory scoliotic curvature of the upper lumbar spine. Prominent osteophytosis throughout the lower facets. There is 1.3 cm spondylolisthesis at the lumbosacral junction that is stable compared to CT from 2018. Prominent calcification over the arterial structures. An oval calcification projecting over the left L2 transverse process is at the expected location of t he left renal collecting system, although no stone was present on the prior CT. It likely represents bowel content. Dystrophic calcification over the pelvis consistent with uterine fibroid. IMPRESSION: Grade 1 spondylolisthesis at the lumbosacral junction, stable. Prominent osseous degenerative changes throughout the lumbar spine. No acute compression fracture corine dent. Mild chronic appearing compression of the lowest 2 thoracic vertebral bodies. Atherosclerosis.
== END 2019-12-02 11:09 | disposition home or self-care (01) ==
LOC: BICRAD 11:08
PROVIDERS: ATTEND Internal Medicine
DX: M53.3 Sacrococcygeal disorders, not elsewhere classified (principal); M54.5 Low back pain; M47.816 Spondylosis without myelopathy or radiculopathy, lumbar region; M43.17 Spondylolisthesis, lumbosacral region; I70.0 Atherosclerosis of aorta
CPT/HCPCS: 72100; 72220

== ENCOUNTER 2019-12-19 10:46 | Outpatient (CLI) | payer MEDICARE, OTHER ==
--- NOTE | 2019-12-19 11:47 | MMO ---
Bilateral MAMMO Bilat Screen [facility]. CLINICAL HISTORY: Patient is 74 years old and is seen for screening. The patient has the following family history of breast cancer: half sister, malignant (generic). The patient has no personal history of cancer. The patient has a history of left needle biopsy in December, - benign. VIEWS: The views performed were: bilateral craniocaudal with tomosynthesis; bilateral mediolateral oblique with tomosynthesis; and left mediolateral oblique. FILMS COMPARED: The present examination has been compared to prior imaging studies performed at [facility] on 04/03/2012, 03/22/2017 and 12/16/2018. This study has been interpreted with the assistance of computer-aided detection. MAMMOGRAM FINDINGS: The breasts are heterogeneously dense, which could obscure a lesion on mammography. Benign calcifications are noted bilaterally. Left biopsy clip. There are no suspicious masses, suspicious calcifications, or new areas of architectural distortion. IMPRESSION: THERE IS NO MAMMOGRAPHIC EVIDENCE OF MALIGNANCY. A ROUTINE FOLLOW-UP MAMMOGRAM IN 1 YEAR IS RECOMMENDED. THE RESULTS OF THIS EXAM WERE SENT TO THE PATIENT. ACR BI-RADS Category 2 - Benign finding MAMMOGRAPHY NOTE: 1. A negative mammogram report should not delay a biopsy if a dominant of clinically suspicious mass is present. 2. Approximately 10% to 15% of breast cancers are not detected by mammography. 3. Adenosis and dense breasts may obscure an underlying neoplasm. Reported by: BRIGIDO YOU MD Electonically Signed: [id number]
== END 2019-12-19 10:47 | disposition home or self-care (01) ==
LOC: BICMAMMO 10:46
PROVIDERS: ATTEND Internal Medicine
DX: Z12.31 Encounter for screening mammogram for malignant neoplasm of breast (principal); Z80.3 Family history of malignant neoplasm of breast; Z91.89 Other specified personal risk factors, not elsewhere classified
CPT/HCPCS: 77063; 77067

== ENCOUNTER 2020-02-16 16:10 | Outpatient (CLI) | payer MEDICARE, OTHER ==
--- NOTE | 2020-02-16 16:45 | RAD ---
RIGHT RIB SERIES TWO VIEWS: Date: 02-16-2020 Provided Clinical History: Right rib pain. FINDINGS: No evidence for displaced right sided rib fracture, pleural fluid, or pneumothorax. No radiographical ly apparent lytic or blastic lesion. IMPRESSION: No radiographic evidence for an acute process. POS: [facility]
--- NOTE | 2020-02-16 16:47 | RAD ---
THORACIC SPINE THREE VIEWS: History: Right sided thoracic pain. FINDINGS: Thoracic vertebrae maintain height and alignment. Moderate degenerative changes are noted. There are anterior and lateral osteophytes from the thoracic vertebrae. A slight curvature to the right in the mid thoracic spine seen in the AP projection. There is no evidence of lytic or blastic process involv ing any of the visualized vertebrae. No compression deformity. IMPRESSION: Moderate degenerative spurring from the thoracic spine. Slight curvature to the right in the mid thor acic spine. POS: [facility]
== END 2020-02-16 16:11 | disposition home or self-care (01) ==
LOC: BICRAD 16:10
PROVIDERS: ATTEND Internal Medicine
DX: M54.6 Pain in thoracic spine (principal); R07.81 Pleurodynia; M46.04 Spinal enthesopathy, thoracic region; M47.814 Spondylosis without myelopathy or radiculopathy, thoracic region; M43.8X4 Other specified deforming dorsopathies, thoracic region
CPT/HCPCS: 72072

== ENCOUNTER 2021-02-19 17:25 | Inpatient (IN) | payer OTHER, MEDICARE ==
[2021-02-19] MEDS ORDERED: Ondansetron PF 4 MG/2 ML Vial ONE (17:57)
[2021-02-19] MEDS ORDERED: Fentanyl 100 MCG/2 ML VIAL ONE ×3 (17:57→20:24)
[2021-02-19 18:05] LABS: #Eosinphils 0.1 thou/uL (0.0-0.7); #Lymphocytes 2.1 thou/uL (1.20-3.40); #Monocytes 0.4 thou/uL (0.11-0.59); #Neutrophils 4.4 thou/uL (1.40-6.50); %Basophils 0.4 % (0.0-1.0); %Eosinophils 1.9 % (0.0-10.0); %Lymphocytes 29.8 % (21.0-51.0); %Monocytes 5.3 % (0.0-10.0); %Neutrophils 62.7 % (42.0-75.0); Hemoglobin 14.3 g/dL (12.0-16.0); Mean Corpuscular HGB CONC 33.5 g/dL (32.0-36.0); Mean Corpuscular Hemoglobin 33.6 pg (27.0-31.0); Mean Platelet Volume 7.4 fL (7.4-10.4); Platelet Count 263 thou/uL (130-400); RBC Distribution Width 12.3 % (11.5-14.5); Red Blood Cell (RBC) Count 4.25 mill/uL (4.20-5.40)
[2021-02-19 18:27] LABS: ALT (SGPT) 43 U/L (8-55); AST (SGOT) 40 U/L (5-34); Albumin 4.4 g/dL (3.4-4.8); Alkaline Phosphatase 77 U/L (40-110); Anion Gap 12 mmol/L (10-20); BUN (Urea Nitrogen) 25 mg/dL (9.8-20.1); Bilirubin, Total 0.4 mg/dL (0.2-1.2); Calc. Creatinine Clearance 0 mL/min (70-130); Calcium 9.5 mg/dL (7.8-10.44); Carbon Dioxide 22 mmol/L (23-31); Chloride 107 mmol/L (98-107); Globulin 3.2 g/dL (2.4-3.5); Glucose 142 mg/dL (83-110); Potassium 4.3 mmol/L (3.5-5.1); Protein, Total 7.6 g/dL (5.8-8.1); Sodium 137 mmol/L (136-145)
[2021-02-19] MEDS ORDERED: traMADol HCl 50 MG TAB PO SCH (21:00)
[2021-02-19] MEDS ORDERED: Dextrose 5% in Water 1,000 ML IV PRN (21:07)
[2021-02-19] MEDS ORDERED: Insulin Regular 300 UNITS/3 ML VIAL SC PRN ×2 (21:07)
[2021-02-19] MEDS ORDERED: Dextrose 50% Abboject 50 ML SYRINGE SLOW IVP PRN (21:07)
[2021-02-19] MEDS ORDERED: hydrALAZINE 20 MG/ML VIAL SLOW IVP PRN (21:07)
[2021-02-19] MEDS ORDERED: Ondansetron PF 4 MG/2 ML Vial IVP PRN (21:07)
[2021-02-19] MEDS ORDERED: traMADol HCl 50 MG TAB PO PRN (21:12)
[2021-02-19] MEDS ORDERED: HYDROmorphone 0.5 MG/0.5 ML SYRINGE ONE (21:39)
[2021-02-19 22:27] VITALS: BMI 33.7
[2021-02-19] MEDS: Cyclobenzaprine 10 MG TAB PO PRN (22:50)
[2021-02-19] MEDS: Gabapentin 100 MG CAP PO SCH (22:51)
[2021-02-19] MEDS ORDERED: Acetaminophen 500 MG TAB PO SCH (23:59)
[2021-02-20 00:36] LABS: SARS-CoV-2 NAA Rapid Test Not Detected (NotDetected)
[2021-02-20] MEDS ORDERED: Acetaminophen/Codeine 30-300mg Tablet PO SCH (02:15)
[2021-02-20] MEDS ORDERED: Morphine 4 MG/ML VIAL SLOW IVP SCH (02:30)
[2021-02-20] MEDS ORDERED: Sodium Chloride 0.9% 1,000 ML IV SCH (03:00)
[2021-02-20] MEDS: Acetaminophen/Codeine 30-300mg Tablet PO SCH ×3 (05:16→17:24)
[2021-02-20] MEDS: Acetaminophen 325 MG TAB PO SCH ×3 (05:16→17:23)
[2021-02-20] MEDS: Gabapentin 100 MG CAP PO SCH ×2 (05:17→14:36)
[2021-02-20] MEDS ORDERED: Levothyroxine Sodium 100 MCG TAB PO SCH (06:00)
[2021-02-20] MEDS: Cyclobenzaprine 10 MG TAB PO PRN (06:23)
[2021-02-20] MEDS: Nateglinide 120 MG TAB PO SCH ×3 (06:23→16:19)
[2021-02-20] MEDS ORDERED: Polyethylene Glycol 3350 17 GM Packet PO SCH (09:00)
[2021-02-20] MEDS ORDERED: Multivit, Therapeutic 1 TAB PO SCH (09:00)
[2021-02-20] MEDS ORDERED: DULAGLUTIDE SC SCH (09:00)
[2021-02-20] MEDS ORDERED: Ezetimibe 10 MG TAB PO SCH (09:00)
[2021-02-20] MEDS ORDERED: Cholecalciferol 1,000 UNITS (25 MCG) TAB PO SCH (09:00)
[2021-02-20] MEDS ORDERED: Gabapentin 300 MG CAP PO SCH (09:00)
[2021-02-20] MEDS ORDERED: Montelukast Sodium 10 mg Tablet PO SCH (09:00)
[2021-02-20] MEDS ORDERED: Carvedilol 6.25 MG TAB PO SCH (09:00)
[2021-02-20] MEDS ORDERED: Senokot S 8.6-50 MG TAB PO SCH (09:00)
[2021-02-20] MEDS ORDERED: [UNRECOGNIZED DRUG - OTHER] SC SCH (09:00)
[2021-02-20] MEDS ORDERED: Famotidine 20 MG TAB PO SCH (09:00)
[2021-02-20 19:55] VITALS: BP 111/52; TEMP 98.6
[2021-02-20] MEDS ORDERED: Amitriptyline HCl 100 MG TAB PO SCH (21:00)
[2021-02-20] MEDS ORDERED: Losartan 25 MG TAB PO SCH (21:00)
== END 2021-02-20 19:45 | DRG 563 ==
LOC: ERS 17:25 → SJJU 21:07
PROVIDERS: ADMIT Specialist; ATTEND Specialist
DX: S82.141A Displaced bicondylar fracture of right tibia, initial encounter for closed fracture (principal); Z20.822 Contact with and (suspected) exposure to COVID-19; N18.30 Chronic kidney disease, stage 3 unspecified; E11.22 Type 2 diabetes mellitus with diabetic chronic kidney disease; I12.9 Hypertensive chronic kidney disease with stage 1 through stage 4 chronic kidney disease, or unspecified chronic kidney disease; E78.5 Hyperlipidemia, unspecified; M79.7 Fibromyalgia; H81.09 Meniere's disease, unspecified ear; W01.0XXA Fall on same level from slipping, tripping and stumbling without subsequent striking against object, initial encounter; Y92.009 Unspecified place in unspecified non-institutional (private) residence as the place of occurrence of the external cause; Z98.84 Bariatric surgery status; Z90.49 Acquired absence of other specified parts of digestive tract; Z91.041 Radiographic dye allergy status; Z79.899 Other long term (current) drug therapy; Z79.890 Hormone replacement therapy
CPT/HCPCS: 36416; 72170; 72192; 80053; 85025; 96374; 96375; 96376; J1170; J2270; J2405; J3010; U0002

== ENCOUNTER 2021-10-18 13:24 | Outpatient (CLI) | payer MEDICARE, OTHER ==
[2021-10-18 14:59] LABS: Bilirubin Neg (Negative); Blood, Urine 10 (Negative); Clarity Clear (Clear); Glucose, Urine (Dipstick) Normal (Negative); Ketone, Urine Negative (Negative); Leukocyte 500 (Negative); Nitrite Negative (Negative); Protein, Urine (Dipstick) 30 mg/dl (Neg-Trace); Specific Gravity, Urine 1.015 (1.002-1.036); Urobilinogen Normal mg/dL (Less than 2)
[2021-10-18 15:07] LABS: #Basophils 0.1 10x3/uL (0.0-0.2); #Eosinphils 0.1 10x3/uL (0.0-0.5); #Monocytes 0.4 10x3/uL (0.0-1.1); #Neutrophils 2.8 10x3/uL (1.5-8.4); %Basophils 0.9 % (0.0-2.0); %Eosinophils 2.2 % (0.0-6.0); %Monocytes 7.5 % (0.0-10.0); %Neutrophils 49.2 % (40.0-75.0); Hemoglobin 13.6 g/dL (12.0-15.5); Mean Corpuscular HGB CONC 31.4 g/dL (32.0-36.0); Mean Corpuscular Hemoglobin 31.1 pg (27.0-33.0); Mean Corpuscular Volume 98.9 fl (81.6-98.3); Mean Platelet Volume 10.2 fl (7.4-10.4); Platelet Count 274 10x3/uL (150-450); RBC Distribution Width 13.3 % (11.5-14.5); Red Blood Cell (RBC) Count 4.38 10x6/uL (3.90-5.03); White Blood Cell (WBC) Count 5.6 10x3/uL (3.5-10.5)
[2021-10-18 15:27] LABS: Anion Gap 15 mmol/L (10-20); BUN (Urea Nitrogen) 34 mg/dL (9.8-20.1); Calc. Creatinine Clearance 0 mL/min (70-130); Calcium 9.2 mg/dL (7.8-10.44); Carbon Dioxide 23 mmol/L (23-31); Chloride 110 mmol/L (98-107); Glucose 158 mg/dL (83-110); Potassium 4.9 mmol/L (3.5-5.1); Sodium 143 mmol/L (136-145)
[2021-10-19 12:00] LABS: SARS-CoV-2 PCR by NAA Not Detected (NotDetected)
== END 2021-10-18 13:25 | disposition home or self-care (01) ==
LOC: LABBT 13:24
PROVIDERS: ATTEND Orthopaedic Surgery Hand Surgery
DX: Z01.818 Encounter for other preprocedural examination (principal); M65.312 Trigger thumb, left thumb; Z20.822 Contact with and (suspected) exposure to COVID-19
CPT/HCPCS: 80048; 81003; 85025; U0003; U0005; 93005; 93010

== ENCOUNTER 2021-10-21 06:56 | Day surgery (SDC) | payer MEDICARE, OTHER ==
[2021-10-14 14:19] VITALS: BMI 31.5
[2021-10-21] MEDS ORDERED: Bupivacaine PF 0.5% 30 ML VIAL ONE (09:58)
[2021-10-21] MEDS ORDERED: Neomycin-Polymyxin 1 ML AMP ONE (09:58)
[2021-10-21] MEDS ORDERED: Betamet Acet/Betamet Na Ph 30 MG/5 ML VIAL ONE (09:58)
[2021-10-21] MEDS ORDERED: Bacitracin Zinc Ointment 30 gm TUBE ONE (09:59)
[2021-10-21] MEDS ORDERED: Fentanyl 100 MCG/2 ML VIAL ONE (10:07)
[2021-10-21] MEDS ORDERED: Sodium Chloride 0.9% 10 ML ONE (10:07)
[2021-10-21] MEDS ORDERED: HYDROmorphone 2 MG/ML VIAL ONE (10:07)
[2021-10-21] MEDS ORDERED: ceFAZolin 2 GM/Dextrose 50 ML IVPB ONE (10:17)
[2021-10-21] MEDS ORDERED: Ondansetron PF 4 MG/2 ML Vial ONE (10:30)
[2021-10-21] MEDS ORDERED: ePHEDrine 50 MG/ML VIAL ONE (10:30)
[2021-10-21] MEDS ORDERED: Dexamethasone 20 MG/5 ML VIAL ONE (10:30)
[2021-10-21] MEDS ORDERED: PROPOFOL 200 MG/20 ML VIAL ONE (10:30)
[2021-10-21] MEDS ORDERED: Lidocaine 1% PF 5 ML VIAL ONE (10:30)
[2021-10-21] MEDS ORDERED: PHENYLEPHRINE-NS 100 MCG/ML 10 ML SYRINGE ONE (10:30)
== END 2021-10-21 14:07 | disposition home or self-care (01) ==
LOC: SDC 06:56
PROVIDERS: ATTEND Orthopaedic Surgery Hand Surgery
PROC: 0LN80ZZ Release Left Hand Tendon, Open Approach (ICD-10-PCS; principal; 2021-10-21)
DX: M65.312 Trigger thumb, left thumb (principal); I13.0 Hypertensive heart and chronic kidney disease with heart failure and stage 1 through stage 4 chronic kidney disease, or unspecified chronic kidney disease; N18.30 Chronic kidney disease, stage 3 unspecified; I50.9 Heart failure, unspecified; E78.5 Hyperlipidemia, unspecified; E03.9 Hypothyroidism, unspecified; H81.09 Meniere's disease, unspecified ear; Z79.890 Hormone replacement therapy; Z79.899 Other long term (current) drug therapy; Z88.5 Allergy status to narcotic agent; Z88.8 Allergy status to other drugs, medicaments and biological substances; Z91.013 Allergy to seafood; Z91.030 Bee allergy status; Z91.038 Other insect allergy status
CPT/HCPCS: J0690; J0702; J1170; J3010; S0020

== ENCOUNTER 2021-11-11 11:49 | Inpatient (IN) | payer MEDICARE, OTHER ==
[2021-11-11] MEDS ORDERED: Cefepime 2 GM VIAL ONE (12:24)
[2021-11-11 12:33] LABS: #Basophils 0.1 thou/uL (0.0-0.2); #Eosinphils 0.1 thou/uL (0.0-0.7); #Lymphocytes 2.9 thou/uL (1.20-3.40); #Monocytes 0.6 thou/uL (0.11-0.59); #Neutrophils 5.7 thou/uL (1.40-6.50); %Basophils 0.9 % (0.0-1.0); %Eosinophils 1.6 % (0.0-10.0); %Lymphocytes 30.5 % (21.0-51.0); %Monocytes 6.4 % (0.0-10.0); %Neutrophils 60.7 % (42.0-75.0); Hemoglobin 14.6 g/dL (12.0-16.0); Mean Corpuscular HGB CONC 33.1 g/dL (32.0-36.0); Mean Corpuscular Hemoglobin 32.6 pg (27.0-31.0); Mean Corpuscular Volume 98.3 fL (78.0-98.0); Mean Platelet Volume 7.1 fL (7.4-10.4); Platelet Count 283 thou/uL (130-400); RBC Distribution Width 12.2 % (11.5-14.5); Red Blood Cell (RBC) Count 4.49 mill/uL (4.20-5.40); White Blood Cell (WBC) Count 9.4 thou/uL (4.8-10.8)
[2021-11-11] MEDS ORDERED: Vancomycin 1 GM/200 ML BAG ONE (12:55)
[2021-11-11 13:03] LABS: ALT (SGPT) 33 U/L (8-55); AST (SGOT) 42 U/L (5-34); Alkaline Phosphatase 81 U/L (40-110); Anion Gap 19 mmol/L (10-20); BUN (Urea Nitrogen) 29 mg/dL (9.8-20.1); Bilirubin, Total 0.6 mg/dL (0.2-1.2); Calc. Creatinine Clearance 0 mL/min (70-130); Calcium 9.1 mg/dL (7.8-10.44); Carbon Dioxide 17 mmol/L (23-31); Chloride 109 mmol/L (98-107); Globulin 3.3 g/dL (2.4-3.5); Glucose 196 mg/dL (83-110); Potassium 5.5 mmol/L (3.5-5.1); Protein, Total 7.3 g/dL (5.8-8.1); Sodium 139 mmol/L (136-145)
[2021-11-11] MEDS ORDERED: Fentanyl 100 MCG/2 ML VIAL ONE ×3 (13:10→20:53)
[2021-11-11 13:56] LABS: Bacteria/HPF None Seen HPF (None Seen); Bilirubin Negative (Negative); Blood, Urine Negative (Negative); Clarity Clear (Clear); Glucose, Urine (Dipstick) 50 mg/dL (Negative); Ketone, Urine Negative (Negative); Leukocyte 25 Leu/uL (Negative); Nitrite Negative (Negative); Protein, Urine (Dipstick) 10 mg/dL (Neg-Trace); RBC/HPF None Seen HPF (0-3); Specific Gravity, Urine 1.016 (1.002-1.036); Squamous Epithelial 0-3 HPF (0-3); Urobilinogen Normal mg/dL (Less than 2); pH, Urine 5.5 (5.0-9.0)
[2021-11-11] MEDS ORDERED: Heparin 1,000 UNITS/ML VIAL ONE (13:56)
[2021-11-11] MEDS ORDERED: Lidocaine 2% Jelly 5 ML TUBE ONE (18:46)
[2021-11-11] MEDS ORDERED: Promethazine HCl 25 MG/ML VIAL IM PRN ×2 (18:58→21:01)
[2021-11-11] MEDS ORDERED: Ondansetron PF 4 MG/2 ML Vial SLOW IVP PRN (18:58)
[2021-11-11] MEDS ORDERED: Bupivacaine PF 0.5% 30 ML VIAL ONE (18:58)
[2021-11-11] MEDS ORDERED: Bacitracin Zinc Ointment 30 gm TUBE ONE (18:58)
[2021-11-11] MEDS ORDERED: traMADol HCl 50 MG TAB PO PRN (18:58)
[2021-11-11] MEDS ORDERED: Bisacodyl 10 MG SUPP PR PRN (18:58)
[2021-11-11] MEDS ORDERED: Thrombin 5000 UNITS/5 ML VIAL ONE (18:58)
[2021-11-11] MEDS ORDERED: Acetaminophen 325 MG TAB PO PRN (18:58)
[2021-11-11] MEDS ORDERED: Neomycin-Polymyxin 1 ML AMP ONE (18:58)
[2021-11-11] MEDS ORDERED: TETANUS AND DIPHTHERIA TOX/PF 0.5 ML DISP.SYRIN IM SCH (19:00)
[2021-11-11] MEDS ORDERED: Communication Order-Pharmacy FS SCH (19:00)
[2021-11-11] MEDS ORDERED: [UNRECOGNIZED DRUG - REMARK] IVPB PRN (19:22)
[2021-11-11 19:39] LABS: SARS-CoV-2 NAA Rapid Test Not Detected (NotDetected)
[2021-11-11] MEDS ORDERED: Ondansetron PF 4 MG/2 ML Vial ONE (19:50)
[2021-11-11] MEDS ORDERED: PROPOFOL 200 MG/20 ML VIAL ONE (19:50)
[2021-11-11] MEDS ORDERED: Lidocaine 1% PF 5 ML VIAL ONE (19:50)
[2021-11-11] MEDS ORDERED: Dexamethasone 20 MG/5 ML VIAL ONE (19:50)
[2021-11-11] MEDS ORDERED: PHENYLEPHRINE-NS 100 MCG/ML 10 ML SYRINGE ONE (19:50)
[2021-11-11] MEDS ORDERED: Ondansetron HCl/PF 4 MG/2 ML Vial IVP PRN (21:01)
[2021-11-11] MEDS ORDERED: Promethazine HCl 25 MG/ML VIAL IVPB PRN (21:01)
[2021-11-11] MEDS: Morphine 4 MG/ML VIAL SLOW IVP PRN (23:44)
[2021-11-11 23:51] VITALS: BMI 31.1
[2021-11-12] MEDS: HYDROcodone/Acetaminophen 5/325 mg Tablet PO PRN ×4 (01:38→19:30)
[2021-11-12] MEDS: Aspirin 81 mg Enteric Coated Tablet PO SCH ×3 (01:38→20:45)
[2021-11-12 03:58] LABS: #Lymphocytes 1.2 thou/uL (1.20-3.40); #Monocytes 0.1 thou/uL (0.11-0.59); #Neutrophils 6.3 thou/uL (1.40-6.50); %Basophils 0.1 % (0.0-1.0); %Eosinophils 0.1 % (0.0-10.0); %Monocytes 1.2 % (0.0-10.0); %Neutrophils 82.6 % (42.0-75.0); Mean Corpuscular HGB CONC 33.5 g/dL (32.0-36.0); Mean Corpuscular Hemoglobin 32.8 pg (27.0-31.0); Mean Corpuscular Volume 98.1 fL (78.0-98.0); Platelet Count 258 thou/uL (130-400); RBC Distribution Width 12.2 % (11.5-14.5); Red Blood Cell (RBC) Count 3.97 mill/uL (4.20-5.40); White Blood Cell (WBC) Count 7.7 thou/uL (4.8-10.8)
[2021-11-12] MEDS: Morphine 4 MG/ML VIAL SLOW IVP PRN ×3 (04:19→12:12)
[2021-11-12] MEDS: Fentanyl 100 MCG/2 ML VIAL SLOW IVP PRN (13:15)
[2021-11-12] MEDS ORDERED: Meperidine HCl/PF 25 MG/ML VIAL IM PRN (13:22)
[2021-11-12] MEDS ORDERED: Vancomycin 1.5 GRAM/300 ML BAG 1.5 GM in Premix Bag 1 BAG IVPB SCH (13:45)
[2021-11-12] MEDS: Carvedilol 6.25 MG TAB PO SCH (18:25)
[2021-11-12] MEDS: Nateglinide 120 MG TAB PO SCH (18:25)
[2021-11-12] MEDS: Amitriptyline HCl 100 MG TAB PO SCH (20:45)
[2021-11-12] MEDS: Montelukast Sodium 10 mg Tablet PO SCH (20:45)
[2021-11-12] MEDS ORDERED: Carvedilol 6.25 MG TAB PO SCH (21:00)
[2021-11-13] MEDS: Morphine 4 MG/ML VIAL SLOW IVP PRN ×3 (04:49→20:43)
[2021-11-13] MEDS: Nateglinide 120 MG TAB PO SCH ×3 (06:23→17:58)
[2021-11-13] MEDS: Levothyroxine Sodium 100 MCG TAB PO SCH (06:23)
[2021-11-13] MEDS: HYDROcodone/Acetaminophen 5/325 mg Tablet PO PRN ×4 (06:27→22:26)
[2021-11-13] MEDS: Multivit, Therapeutic 1 TAB PO SCH (08:55)
[2021-11-13] MEDS: Aspirin 81 mg Enteric Coated Tablet PO SCH ×2 (08:55→20:44)
[2021-11-13] MEDS: Carvedilol 6.25 MG TAB PO SCH ×2 (08:58→17:59)
[2021-11-13] MEDS: Cholecalciferol 1,000 UNITS (25 MCG) TAB PO SCH (08:58)
[2021-11-13] MEDS: Calcium Carbonate 600 MG TAB PO SCH (08:58)
[2021-11-13] MEDS: Ezetimibe 10 MG TAB PO SCH (08:59)
[2021-11-13 13:12] LABS: Vancomycin, Random 18.4 ug/mL (See Comment)
[2021-11-13] MEDS ORDERED: Vancomycin 1 GM in Premix Bag 1 BAG IVPB SCH ×2 (14:00→18:00)
[2021-11-13] MEDS: Fentanyl 100 MCG/2 ML VIAL SLOW IVP PRN (15:30)
[2021-11-13] MEDS ORDERED: Meperidine HCl/PF 25 MG/ML VIAL IM PRN (16:43)
[2021-11-13] MEDS: cefOXitin Sodium 1 GM in Sodium Chloride 0.9% 100 ML IVPB SCH (18:01)
[2021-11-13] MEDS: Montelukast Sodium 10 mg Tablet PO SCH (20:44)
[2021-11-13] MEDS ORDERED: Gentamicin 80 MG/2 ML VIAL IM SCH (22:00)
[2021-11-13] MEDS: Amitriptyline HCl 100 MG TAB PO SCH (22:26)
[2021-11-14] MEDS: cefOXitin Sodium 1 GM in Sodium Chloride 0.9% 100 ML IVPB SCH (05:10)
[2021-11-14] MEDS: Morphine 4 MG/ML VIAL SLOW IVP PRN ×3 (05:11→20:31)
[2021-11-14] MEDS: Levothyroxine Sodium 100 MCG TAB PO SCH (05:11)
[2021-11-14] MEDS: Nateglinide 120 MG TAB PO SCH ×3 (06:20→17:52)
[2021-11-14] MEDS: Aspirin 81 mg Enteric Coated Tablet PO SCH ×2 (08:43→20:31)
[2021-11-14] MEDS: Calcium Carbonate 600 MG TAB PO SCH (08:44)
[2021-11-14] MEDS: Carvedilol 6.25 MG TAB PO SCH ×2 (08:44→17:52)
[2021-11-14] MEDS: Cholecalciferol 1,000 UNITS (25 MCG) TAB PO SCH (08:44)
[2021-11-14] MEDS: Multivit, Therapeutic 1 TAB PO SCH (08:45)
[2021-11-14] MEDS: Ezetimibe 10 MG TAB PO SCH (08:45)
[2021-11-14] MEDS: HYDROcodone/Acetaminophen 5/325 mg Tablet PO PRN ×2 (08:50→16:07)
[2021-11-14] MEDS: Fentanyl 100 MCG/2 ML VIAL SLOW IVP PRN (16:04)
[2021-11-14] MEDS: Cefepime 2 GM in Sodium Chloride 0.9% 100 ML IVPB SCH (17:17)
[2021-11-14] MEDS: Amitriptyline HCl 100 MG TAB PO SCH (20:31)
[2021-11-14] MEDS: Montelukast Sodium 10 mg Tablet PO SCH (20:31)
[2021-11-15] MEDS: Morphine 4 MG/ML VIAL SLOW IVP PRN ×4 (01:50→20:54)
[2021-11-15] MEDS: HYDROcodone/Acetaminophen 5/325 mg Tablet PO PRN (05:37)
[2021-11-15] MEDS: Levothyroxine Sodium 100 MCG TAB PO SCH (05:38)
[2021-11-15] MEDS: Nateglinide 120 MG TAB PO SCH ×3 (07:37→18:15)
[2021-11-15] MEDS: Ezetimibe 10 MG TAB PO SCH (10:35)
[2021-11-15] MEDS: Aspirin 81 mg Enteric Coated Tablet PO SCH ×2 (10:35→21:33)
[2021-11-15] MEDS: Cholecalciferol 1,000 UNITS (25 MCG) TAB PO SCH (10:35)
[2021-11-15] MEDS: Multivit, Therapeutic 1 TAB PO SCH (10:36)
[2021-11-15] MEDS: Calcium Carbonate 600 MG TAB PO SCH (10:36)
[2021-11-15] MEDS: Carvedilol 6.25 MG TAB PO SCH ×2 (10:36→16:17)
[2021-11-15] MEDS: Cefepime 2 GM in Sodium Chloride 0.9% 100 ML IVPB SCH (16:25)
[2021-11-15] MEDS: Montelukast Sodium 10 mg Tablet PO SCH (21:32)
[2021-11-15] MEDS: Amitriptyline HCl 100 MG TAB PO SCH (21:33)
[2021-11-16] MEDS: Levothyroxine Sodium 100 MCG TAB PO SCH (05:45)
[2021-11-16] MEDS: Nateglinide 120 MG TAB PO SCH ×3 (09:13→18:39)
[2021-11-16] MEDS: Calcium Carbonate 600 MG TAB PO SCH (09:13)
[2021-11-16] MEDS: Cholecalciferol 1,000 UNITS (25 MCG) TAB PO SCH (09:14)
[2021-11-16] MEDS: Multivit, Therapeutic 1 TAB PO SCH (09:14)
[2021-11-16] MEDS: Ezetimibe 10 MG TAB PO SCH (09:14)
[2021-11-16] MEDS: Carvedilol 6.25 MG TAB PO SCH ×2 (09:15→18:38)
[2021-11-16] MEDS: Losartan 25 MG TAB PO SCH (09:19)
[2021-11-16] MEDS: HYDROcodone/Acetaminophen 5/325 mg Tablet PO PRN (12:41)
[2021-11-16] MEDS: Aspirin 81 mg Enteric Coated Tablet PO SCH ×2 (12:42→21:38)
[2021-11-16] MEDS ORDERED: Bacitracin Zinc Ointment 30 gm TUBE ONE (15:40)
[2021-11-16] MEDS ORDERED: Bupivacaine PF 0.5% 30 ML VIAL ONE (15:40)
[2021-11-16] MEDS ORDERED: NEOMYCIN-POLYMYXIN-HC EAR SUSP 200 DROP/10 ML BOT ONE (15:40)
[2021-11-16] MEDS ORDERED: Neomycin-Polymyxin 1 ML AMP ONE (15:40)
[2021-11-16] MEDS ORDERED: Fentanyl 100 MCG/2 ML VIAL ONE (15:43)
[2021-11-16] MEDS ORDERED: Phenylephrine 10 MG/ML VIAL ONE (16:27)
[2021-11-16] MEDS: Cefepime 2 GM in Sodium Chloride 0.9% 100 ML IVPB SCH (18:40)
[2021-11-16] MEDS ORDERED: Meperidine HCl/PF 25 MG/ML VIAL IM PRN (18:56)
[2021-11-16] MEDS ORDERED: Promethazine HCl 25 MG/ML VIAL IM PRN (18:57)
[2021-11-16] MEDS: Morphine 4 MG/ML VIAL SLOW IVP PRN (20:07)
[2021-11-16] MEDS: Montelukast Sodium 10 mg Tablet PO SCH (21:38)
[2021-11-16] MEDS: Amitriptyline HCl 100 MG TAB PO SCH (21:38)
[2021-11-16] MEDS: HYDROcodone/Acetaminophen 7.5/325 mg Tablet PO PRN (21:41)
[2021-11-17] MEDS: Levothyroxine Sodium 100 MCG TAB PO SCH (05:49)
[2021-11-17] MEDS: Morphine 4 MG/ML VIAL SLOW IVP PRN ×2 (05:50→10:53)
[2021-11-17] MEDS: Nateglinide 120 MG TAB PO SCH ×2 (08:00→14:07)
[2021-11-17] MEDS: Losartan 25 MG TAB PO SCH (08:01)
[2021-11-17] MEDS: Calcium Carbonate 600 MG TAB PO SCH (08:02)
[2021-11-17] MEDS: Aspirin 81 mg Enteric Coated Tablet PO SCH (08:02)
[2021-11-17] MEDS: Carvedilol 6.25 MG TAB PO SCH (08:03)
[2021-11-17] MEDS: Cholecalciferol 1,000 UNITS (25 MCG) TAB PO SCH (08:03)
[2021-11-17] MEDS: HYDROcodone/Acetaminophen 7.5/325 mg Tablet PO PRN ×2 (08:11→14:07)
[2021-11-17 10:52] LABS: #Lymphocytes 2.5 thou/uL (1.20-3.40); #Monocytes 0.7 thou/uL (0.11-0.59); %Basophils 0.4 % (0.0-1.0); %Eosinophils 0.5 % (0.0-10.0); %Lymphocytes 26.8 % (21.0-51.0); %Monocytes 7.4 % (0.0-10.0); %Neutrophils 64.9 % (42.0-75.0); Hemoglobin 12.1 g/dL (12.0-16.0); Mean Corpuscular HGB CONC 31.9 g/dL (32.0-36.0); Mean Corpuscular Hemoglobin 32.5 pg (27.0-31.0); Mean Platelet Volume 7.2 fL (7.4-10.4); Platelet Count 234 thou/uL (130-400); RBC Distribution Width 12.1 % (11.5-14.5); Red Blood Cell (RBC) Count 3.72 mill/uL (4.20-5.40); White Blood Cell (WBC) Count 9.2 thou/uL (4.8-10.8)
[2021-11-17] MEDS: Ezetimibe 10 MG TAB PO SCH (10:54)
[2021-11-17] MEDS: Multivit, Therapeutic 1 TAB PO SCH (10:55)
[2021-11-17 11:12] LABS: ALT (SGPT) 29 U/L (8-55); AST (SGOT) 34 U/L (5-34); Albumin 3.5 g/dL (3.4-4.8); Alkaline Phosphatase 68 U/L (40-110); Anion Gap 16 mmol/L (10-20); BUN (Urea Nitrogen) 31 mg/dL (9.8-20.1); Bilirubin, Total 0.3 mg/dL (0.2-1.2); Calc. Creatinine Clearance 33 mL/min (70-130); Calcium 9.2 mg/dL (7.8-10.44); Carbon Dioxide 22 mmol/L (23-31); Chloride 106 mmol/L (98-107); Globulin 2.8 g/dL (2.4-3.5); Glucose 222 mg/dL (83-110); Potassium 4.9 mmol/L (3.5-5.1); Protein, Total 6.3 g/dL (5.8-8.1); Sodium 139 mmol/L (136-145)
[2021-11-17] MEDS: Cefepime 2 GM in Sodium Chloride 0.9% 100 ML IVPB SCH (14:09)
[2021-11-17 16:25] VITALS: BP 129/67; TEMP 98.4
== END 2021-11-17 17:14 | disposition home health service (06) | DRG 857 ==
LOC: ERS 11:49 → SURG A 17:47 → OBSVTOIN 18:58
PROVIDERS: ADMIT Orthopaedic Surgery Hand Surgery; ATTEND Orthopaedic Surgery Hand Surgery
PROC: 0LB80ZZ Excision of Left Hand Tendon, Open Approach (ICD-10-PCS; principal; 2021-11-11)
PROC: 02HV33Z Insertion of Infusion Device into Superior Vena Cava, Percutaneous Approach (ICD-10-PCS; 2021-11-15)
PROC: B548ZZA Ultrasonography of Superior Vena Cava, Guidance (ICD-10-PCS; 2021-11-15)
PROC: 0LB80ZZ Excision of Left Hand Tendon, Open Approach (ICD-10-PCS; 2021-11-16)
DX: T81.49XA Infection following a procedure, other surgical site, initial encounter (principal); L02.512 Cutaneous abscess of left hand; M65.142 Other infective (teno)synovitis, left hand; Z20.822 Contact with and (suspected) exposure to COVID-19; E78.5 Hyperlipidemia, unspecified; E78.00 Pure hypercholesterolemia, unspecified; M79.7 Fibromyalgia; Y83.8 Other surgical procedures as the cause of abnormal reaction of the patient, or of later complication, without mention of misadventure at the time of the procedure; E11.22 Type 2 diabetes mellitus with diabetic chronic kidney disease; I12.9 Hypertensive chronic kidney disease with stage 1 through stage 4 chronic kidney disease, or unspecified chronic kidney disease; N18.9 Chronic kidney disease, unspecified; Z90.49 Acquired absence of other specified parts of digestive tract; Z91.041 Radiographic dye allergy status; Z91.013 Allergy to seafood; Z88.6 Allergy status to analgesic agent; Z79.890 Hormone replacement therapy; Z79.899 Other long term (current) drug therapy
CPT/HCPCS: 36415; 36416; 36569; 51701; 80053; 80202; 81003; 81015; 83605; 84132; 85025; 86140; 87040; 87070; 87077; 87086; 87186; 87205; 88305; 89060; 93005; 96365; 96366; 96367; 96375; C1751; G0378; J0692; J0694; J1100; J1644; J2175; J2270; J2370; J2405; J2704; J3010; J3370; J3490; S0020; U0002

== ENCOUNTER 2022-05-22 10:50 | Outpatient (CLI) | payer MEDICARE, OTHER | END 2022-05-22 10:51 | disposition home or self-care (01) | LOC: BICMAMMO 10:50 | PROVIDERS: ATTEND Internal Medicine | DX: Z12.31 Encounter for screening mammogram for malignant neoplasm of breast (principal); Z13.820 Encounter for screening for osteoporosis; M81.0 Age-related osteoporosis without current pathological fracture; M85.852 Other specified disorders of bone density and structure, left thigh; Z78.0 Asymptomatic menopausal state; Z91.89 Other specified personal risk factors, not elsewhere classified | CPT/HCPCS: 77063; 77067; 77080 ==

== ENCOUNTER 2023-06-18 08:28 | Outpatient (CLI) | payer MEDICARE, OTHER | END 2023-06-18 08:29 | disposition home or self-care (01) | LOC: BICMRI 08:28 | PROVIDERS: ATTEND Internal Medicine | DX: R51.9 Headache, unspecified (principal); I67.89 Other cerebrovascular disease; R90.89 Other abnormal findings on diagnostic imaging of central nervous system; M47.812 Spondylosis without myelopathy or radiculopathy, cervical region | CPT/HCPCS: 70551 ==

== ENCOUNTER 2023-06-19 08:53 | Outpatient (CLI) | payer MEDICARE, OTHER | END 2023-06-19 08:54 | disposition home or self-care (01) | LOC: SCSMRI 08:53 | PROVIDERS: ATTEND Internal Medicine | DX: M50.21 Other cervical disc displacement, high cervical region (principal); M48.02 Spinal stenosis, cervical region; M47.812 Spondylosis without myelopathy or radiculopathy, cervical region; M25.78 Osteophyte, vertebrae; M50.31 Other cervical disc degeneration, high cervical region; M50.321 Other cervical disc degeneration at C4-C5 level; M50.322 Other cervical disc degeneration at C5-C6 level; M50.323 Other cervical disc degeneration at C6-C7 level; M48.03 Spinal stenosis, cervicothoracic region | CPT/HCPCS: 72141 ==

== ENCOUNTER 2023-07-10 11:25 | Outpatient (CLI) | payer MEDICARE, OTHER | END 2023-07-10 11:26 | disposition home or self-care (01) | LOC: BICMAMMO 11:25 | PROVIDERS: ATTEND Internal Medicine | DX: Z12.31 Encounter for screening mammogram for malignant neoplasm of breast (principal); Z80.3 Family history of malignant neoplasm of breast; Z91.89 Other specified personal risk factors, not elsewhere classified | CPT/HCPCS: 77063; 77067 ==

== ENCOUNTER 2024-02-06 16:00 | Outpatient (CLI) | payer MEDICARE, OTHER | END 2024-02-06 16:01 | disposition home or self-care (01) | LOC: SLEEPLAB 16:00 | PROVIDERS: ATTEND Internal Medicine | DX: G47.33 Obstructive sleep apnea (adult) (pediatric) (principal); R06.83 Snoring; R00.0 Tachycardia, unspecified | CPT/HCPCS: 95810 ==

== ENCOUNTER 2024-06-30 09:00 | Outpatient (CLI) | payer MEDICARE, OTHER | END 2024-06-30 09:01 | disposition home or self-care (01) | LOC: MRI 09:00 | PROVIDERS: ATTEND Internal Medicine | DX: R29.898 Other symptoms and signs involving the musculoskeletal system (principal); M48.061 Spinal stenosis, lumbar region without neurogenic claudication; M47.816 Spondylosis without myelopathy or radiculopathy, lumbar region; M43.16 Spondylolisthesis, lumbar region; M51.35 Other intervertebral disc degeneration, thoracolumbar region; M51.36 Other intervertebral disc degeneration, lumbar region; M51.37 Other intervertebral disc degeneration, lumbosacral region | CPT/HCPCS: 72148 ==

== ENCOUNTER 2024-08-05 08:05 | Outpatient (CLI) | payer MEDICARE, OTHER | END 2024-08-05 08:06 | disposition home or self-care (01) | LOC: BICMAMMO 08:05 | PROVIDERS: ATTEND Internal Medicine Rheumatology | DX: M81.8 Other osteoporosis without current pathological fracture (principal); M85.851 Other specified disorders of bone density and structure, right thigh | CPT/HCPCS: 77080 ==

== ENCOUNTER 2025-07-06 12:52 | Outpatient (CLI) | payer MEDICARE, OTHER | END 2025-07-06 12:53 | disposition home or self-care (01) | LOC: BICRAD 12:52 | PROVIDERS: ATTEND Internal Medicine | DX: M25.551 Pain in right hip (principal); M25.552 Pain in left hip; M54.50 Low back pain, unspecified; M16.0 Bilateral primary osteoarthritis of hip; M89.9 Disorder of bone, unspecified; M43.16 Spondylolisthesis, lumbar region; M47.816 Spondylosis without myelopathy or radiculopathy, lumbar region | CPT/HCPCS: 72100; 72170 ==